=== PATIENT | female | born 1935 | race Caucasian/White ===

== ENCOUNTER 2020-04-09 19:35 | IRF | payer MEDICARE, SELFPAY ==
--- NOTE | 2020-04-09 21:29 | ADMGEN ---
This patient, Lori Rodriguez, was admitted to [facility] Room 222-01 at 1935. Patient/family oriented to hospital policies and general routines including ID bracelet, bed and alarms, visiting hours, pain management, procedures, bathroom and other care routines, personal items, smoking policy, room service/diet, and visiting hours. Valuables list has been completed. Information on how to activate the Rapid Response Team has been discussed. Patient/Family are encouraged to report perceived risks to care and to ask questions if they do not understand what they are told or what they should do.
[2020-04-09] MEDS: ATORVASTATIN 40 MG TABLET PO (21:30)
[2020-04-09 21:42] VITALS: BP 171/89; PULSE 93; RESP 20; TEMP 37.1; O2SAT 94
[2020-04-10 03:33] VITALS: BMI 20.2
[2020-04-10 04:54] VITALS: BP 115/50; PULSE 88; RESP 20; TEMP 37.2; O2SAT 98
[2020-04-10 04:59] LABS: Basophils Percent Auto 0.2 % (0.2-1.2); Eosinophils Percent Auto 0.1 % (0-4.4); Hematocrit 41.7 % (37.0-47.0); Hemoglobin 14.4 g/dL (12.0-15.0); Immature Granulocyte Absolute 0.07 K/mm3 (0.00-0.031); Immature Granulocyte Percent A 0.4 % (0-0.5); Lymphocytes Absolute Auto 1.01 K/mm3 (0.9-3.2); Lymphocytes Percent Auto 6.4 % (18.3-44.2); Mean Corpuscular HGB Conc 34.5 g/dl (32-36); Mean Corpuscular Hemoglobin 29.3 pg (26-34); Mean Corpuscular Volume 84.8 fl (80-100); Mean Platelet Volume 9.2 fl (7.4-10.4); Monocytes Absolute Auto 1.4 K/mm3 (0.1-0.6); Monocytes Percent Auto 8.7 % (2.6-8.5); Neutrophils Absolute Auto 13.3 K/mm3 (1.3-6.7); Neutrophils Percent Auto 84.2 % (45.5-73.1); Platelet Count Result 297 k/mm3 (150-375); Red Blood Count 4.92 M/mm3 (4.2-5.4); Red Cell Distribution Width 13.2 % (11.5-14.5); White Blood Count 15.8 K/mm3 (4.5-10.0)
[2020-04-10 05:14] LABS: Anion Gap 7 mmol/L (8-16); Blood Urea Nitrogen 17 mg/dL (7-17); Calcium 10.3 mg/dL (8.4-10.2); Carbon Dioxide 30 mmol/L (22-30); Chloride 91 mmol/L (98-107); Cholesterol 195 mg/dL (0-200); Estimated CRCL calculation 48 ml/min; Estimated Glomerular Filt Rate > 60; Glucose 119 mg/dL (65-105); HDL Direct 82 mg/dL; Potassium 4.4 mmol/L (3.4-5.0); Sodium 128 mmol/L (137-145); Triglycerides 66 mg/dL (<150)
[2020-04-10 05:24] LABS: LDL Cholesterol Direct 75 mg/dL
[2020-04-10] MEDS: LEVOTHYROXINE SODIUM 50 MCG TABLET PO (06:05)
[2020-04-10] MEDS: CLOPIDOGREL BISULFATE 75 MG TABLET PO (09:36)
[2020-04-10] MEDS: ASPIRIN 81 MG CHEWABLE TABLET PO (09:36)
[2020-04-10] MEDS: lisinopriL 10 MG TABLET PO ×2 (09:36→17:36)
--- NOTE | 2020-04-10 10:33 | PM.IMHP ---
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 The patient was examined by this examiner [id number] at 10:00 a.m. on April 10, 2020 H and P The patient is an 85-year-old woman with a past medical history of hypertension, hyperlipidemia, hypothyroidism, and anxiety who presented to [facility] on April 07, 2020 with left-sided weakness. The patient reported that she woke up around 4:45 a.m. and attempted to get out of the bed however her left arm left leg felt very heavy and she was unable to stand. Her contacted EMS and she was transported to the emergency department. The patient reported that she has had no symptoms prior to going to bed around 10:00 p.m.. She was too late to get TPN treatment for CVA as she was outside the window. Blood pressure in the emergency room was initially 226/110 and after several medications drop to 198/86. Chest x-ray demonstrated minimal bibasilar opacities likely atelectasis atelectasis or scarring. CT of the head revealed an acute to subacute lacunar infarct of the right centrum semi ovale measuring up to 2 centimeter. Carotid Dopplers showed no significant carotid or vertebral artery stenosis Prieb intracranial CTA demonstrated a suspected acute to subacute lacunar infarct of the right centrum semi ovale and no aneurysm or significant focal stenosis or occlusion. MRI of the brain demonstrated a small acute infarction of the left parietal periventricular white matter an acute infarct of the posterior limb of the right internal capsule. Neurology was consulted and she was placed on aspirin atorvastatin Lovenox and Plavix. The patient will continue aspirin and Plavix 75 milligram 90 days followed by monotherapy with either anti-platelet. The systolic blood pressure goal is the near term in the near term is 140/80 and up to 180 a in the acute phase of the stroke systolic. Long-term systolic blood pressure goal is 110 to 130 millimeter of mercury. The patient is awake alert oriented x4 and demonstrates left-sided neglect significant decrease strength endurance almost hemiplegia and impaired balance. The patient is discharged to us on aspirin Plavix and Lovenox will be discontinued she should be on SCDs though The patient has not traveled outside the [place] or had contact with someone who is ill that has traveled outside the [place] in the past 21 days. The patient has not traveled to an area of the [place] that is experiencing no transmission of the Coronavirus and has not had close personal contact with anyone that has. The patient does not have a fever. The patient is not experiencing lower respiratory illness symptoms. Therapy was initiated the acute care facility and the patient was transferred to us from [facility] on April 09, 2020. The patient has had no major surgery in the last 100 days. The patient has had falls in the past year. The patient has had no falls with injury in the past year. Past medical history, cataracts, hard of hearing, macular degeneration, shingles, hypertension, hyperlipidemia, pneumonia, bronchitis, GERD, UTI, anxiety Past surgical history, tonsillectomy bilateral cataract removal, D and C. Family history first-degree relatives have heart disease and hypertension. Social history, the patient lives with her in a 1 story home with and steps to enter and walked out placement. She was previously completely independent with no device. She completed all of the cooking and cleaning and garden or other grandson completed the art work. She has 3 children that live locally. Prior level for or function was completely independent in all spheres of t
[2020-04-10 14:00] VITALS: BP 111/53; PULSE 82; RESP 16; TEMP 36.7; O2SAT 95
[2020-04-10 14:18] VITALS: BMI 20.2
--- NOTE | 2020-04-10 14:44 | PCNSR ---
On 04/10/20, the student, Luz Chen, provided care and completed [facility] documentation on this patient. I have reviewed the student's documentation and agree with the findings.
--- NOTE | 2020-04-10 16:27 | RPD ---
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 Comorbidities include KALISPEL, macular degeneration, HTN, HLD, GERD, UTI, anxiety, hypertensive urgency, hypothyroidism, left-sided weakness, nausea, hyponatremia, and hypercalcemia. The complexity of the patient's medical management, nursing, and therapy needs require an inpatient rehab hospital stay with a physician-led interdisciplinary team approach. The patient?s needs will be best met in an intensive program vs. at a lower level of care. The patient requires physician services for neurology services, medical oversight, and coordination of care. Emotional needs will be monitored as depression is a common sequelae of stroke. The patient requires nursing services for frequent neuro checks, anticoagulation therapy, medication management and education, pressure relief and skin care management, monitoring of labs, bowel and bladder training, diabetes management and education, IV administration, and fall/safety precautions. Deficits include:ADLs, Balance, Endurance, Family Training/Education, Mobility, Pain Management, ROM, Safety, Strength, and Transfers. Head Pastry Chef/Case Management for: Discharge Planning and Patient/Family Counseling Physical Therapy: 5 days per week for 60 minutes. Treatments may include: Therapeutic Exercise, Gait Training, Neuromuscular Re-education, Transfer Training, Community Reintegration, Bed Mobility, Patient/Family Education, Wheelchair Mobility Group Therapy/Concurrent Therapy Rationales: -Improve attention span during functional activities in a distracted environment. -Enhance problem solving and/or adequate judgment skills during functional activities in a distracted environment. -Promote increased safety awareness in a distracted environment to reduce fall risk with functional tasks, transfers, and ambulation to allow a more safe, self-sufficient return to the home environment. -Improve dynamic balance skills to promote safety and independence with functional activities in a distracted environment for maximum gain. Occupational Therapy: 5 days per week for 60 minutes. Treatments may include: Therapeutic Exercise, Therapeutic Activity, Cognitive Training, Self-Care Transfer Training, Community Reintegration, Home Management, Patient/Family Education, Wheelchair Mobility Training, Energy Conservation Training Group Therapy/Concurrent Therapy Rationales: -Allow therapist to observe and teach generalization and carry-over of skills learned in individual therapy. -Enhance problem solving and sequencing skills during therapeutic activities in a distracted environment. -Promote increased safety awareness in a realistic setting to reduce fall risk with functional tasks due to visual and verbal distractions. -Increase functional level with ADLs, ADL transfers and use of adaptive equipment through therapeutic activities with others while promoting safety to allow a more safe, self-sufficient return home. Speech Therapy: 5 days per week for 60 minutes. Treatments may include: Dysphasia Therapy, Speech/Language/Communication Therapy, Cognitive Training, Patient/Family Education Group Therapy/Concurrent Therapy - Rationale: -Allow therapist to observe and teach generalization and carry-over of skills learned in individual therapy. -Improve comprehension skills with complex or abstract ideas through discussion in a realistic setting. -Enhance problem solving skills with complex issues during activities in a distracted environment. -Promote increased memory skills and concentration in a distracted environment for a safe transition home. -Improve attention and focus with language/communication skills in a realistic and supportive ther
[2020-04-10 20:15] VITALS: BP 138/64; PULSE 76; RESP 18; TEMP 36.9; O2SAT 95
[2020-04-10] MEDS: ATORVASTATIN 40 MG TABLET PO (20:49)
[2020-04-11 05:31] VITALS: BP 134/60; PULSE 79; RESP 18; TEMP 36.6; O2SAT 97
[2020-04-11] MEDS: LEVOTHYROXINE SODIUM 50 MCG TABLET PO (06:26)
[2020-04-11] MEDS: CLOPIDOGREL BISULFATE 75 MG TABLET PO (09:59)
[2020-04-11] MEDS: lisinopriL 10 MG TABLET PO ×2 (09:59→17:21)
[2020-04-11] MEDS: ASPIRIN 81 MG CHEWABLE TABLET PO (09:59)
[2020-04-11 10:00] VITALS: PULSE 78; RESP 18; O2SAT 97
--- NOTE | 2020-04-11 13:47 | WPDNEURORHBP ---
Subjective Date/time seen: 04/11/20 13:47 Interval history: this 85-year-old woman is here because of significant stroke and the significant left-sided hemiparesis which she is unable to ambulate at home and she will need DVT prophylaxis along with the entity the platelet therapy at this time She denies any headache nausea vomiting chest pain shortness of breath fever chills sore throat Review of Systems Review of Systems: All systems reviewed & are unremarkable except as noted in HPI and below Exam Narrative: Exam Narrative: patient is awake alert not any distress has significant left-sided weakness otherwise the general examination reveals normal eyes ears nose and throat normal eye examination chest is clear cardiovascular examination stable abdomen is soft not tender extremities reveal no deformities She is needing assistance is all the activities of daily living Objective Data Vital Signs Vital Signs: Vital Signs - 24 hr 04/10/20 14:00 04/10/20 20:15 04/11/20 05:31 Temperature 36.7 C 36.9 C 36.6 C Pulse Rate 82 76 79 Respiratory Rate 16 18 18 Blood Pressure 111/53 L 138/64 134/60 Pulse Oximetry 95 95 97 04/11/20 10:00 Temperature Pulse Rate 78 Respiratory Rate 18 Blood Pressure Pulse Oximetry 97 Intake/Output Intake/Output: Intake & Output 04/08/20 04/09/20 04/10/20 04/11/20 23:59 23:59 23:59 23:59 Intake Total 600 240 Balance 600 240 Meds/Results Medications: Active Medications Generic Name Dose Route Start Last Admin Trade Name Freq PRN Reason Stop Dose Admin Acetaminophen 650 mg 04/09/20 21:24 Acetaminophen 325 Mg Tablet PO Q4H PRN Fever Aspirin 81 mg 04/10/20 08:00 04/11/20 09:59 Aspirin 81 Mg Chewable Tablet PO 81 mg DAILY@0800 PHAN Administration Atorvastatin Calcium 40 mg 04/09/20 21:30 04/10/20 20:49 Atorvastatin 40 Mg Tablet PO 40 mg HS PHAN Administration Clopidogrel Bisulfate 75 mg 04/10/20 09:00 04/11/20 09:59 Clopidogrel Bisulfate 75 Mg Tablet PO 75 mg DAILY PHAN Administration Levothyroxine Sodium 50 mcg 04/10/20 06:30 04/11/20 06:26 Levothyroxine Sodium 50 Mcg Tablet PO 50 mcg DAILY@0630 PHAN Administration Lisinopril 10 mg 04/10/20 09:00 04/11/20 09:59 Lisinopril 10 Mg Tablet PO 10 mg BID PHAN Administration Melatonin 5 mg 04/09/20 21:24 Melatonin 5 Mg Tablet PO HS PRN Sleep Ondansetron HCl 4 mg 04/10/20 11:34 Ondansetron Hcl Odt 4 Mg Tablet PO Q6H PRN Nausea And Vomiting Polyethylene Glycol 17 gm 04/12/20 09:00 Polyethylene Glycol 3350 17 Gm Powd.Pack PO QAM [facility] Progress Note: A&P Assessment and Plan (1) Anxiety: Code(s): F41.9 - Anxiety disorder, unspecified Status: Acute (2) Hyperlipidemia: Code(s): E78.5 - Hyperlipidemia, unspecified Status: Acute (3) GERD (gastroesophageal reflux disease): Code(s): K21.9 - Gastro-esophageal reflux disease without esophagitis Status: Acute (4) Hypertension: Code(s): I10 - Essential (primary) hypertension Status: Acute (5) Left hemiplegia: Code(s): G81.94 - Hemiplegia, unspecified affecting left nondominant side Status: Acute (6) Stroke: Code(s): I63.9 - Cerebral infarction, unspecified Status: Acute Additional Plan will start her on Lovenox till she starts ambulating rest of the medical management along with PT OT and speech as before
[2020-04-11 14:00] VITALS: BP 138/53; PULSE 76; RESP 16; TEMP 37.4; O2SAT 96
[2020-04-11] MEDS: ENOXAPARIN 40 MG/0.4 ML SYRINGE SUB-Q (17:16)
[2020-04-11 20:00] VITALS: PULSE 80; RESP 18; O2SAT 94
[2020-04-11] MEDS: ATORVASTATIN 40 MG TABLET PO (20:10)
[2020-04-11 22:00] VITALS: BP 174/76; PULSE 80; RESP 18; TEMP 36.2; O2SAT 94
[2020-04-11] MEDS: ACETAMINOPHEN 325 MG TABLET 650 MG PO (23:14)
[2020-04-12 06:00] VITALS: BP 149/68; PULSE 68; RESP 19; TEMP 36.1; O2SAT 95
[2020-04-12] MEDS: LEVOTHYROXINE SODIUM 50 MCG TABLET PO (06:36)
[2020-04-12] MEDS: polyethylene glycoL 3350 17 GM POWD.PACK PO (09:59)
[2020-04-12] MEDS: ENOXAPARIN 40 MG/0.4 ML SYRINGE SUB-Q (09:59)
[2020-04-12] MEDS: CLOPIDOGREL BISULFATE 75 MG TABLET PO (09:59)
[2020-04-12] MEDS: lisinopriL 10 MG TABLET PO ×2 (09:59→16:55)
[2020-04-12] MEDS: ASPIRIN 81 MG CHEWABLE TABLET PO (09:59)
[2020-04-12 14:00] VITALS: BP 154/69; PULSE 69; RESP 18; TEMP 36.8; O2SAT 96
--- NOTE | 2020-04-12 16:29 | WPDNEURORHBP ---
Subjective Date/time seen: 04/12/20 16:29 Interval history: this 85-year-old pretty pleasant woman is here with significant left-sided hemiplegia she has leukocytosis and hyponatremia so I need to check the CBC and BMP tomorrow otherwise she denies any headache nausea vomiting chest pain shortness of breath fever chills sore throat and vital signs are stable Review of Systems Review of Systems: All systems reviewed & are unremarkable except as noted in HPI and below Exam Narrative: Exam Narrative: patient is awake alert following commands with significant left-sided hemiplegia and left-sided neglect otherwise head is normocephalic neck is supple lungs are clear cardiovascular examination is negative abdomen is soft not tender extremities reveal no deformities Objective Data Vital Signs Vital Signs: Vital Signs - 24 hr 04/11/20 20:00 04/11/20 22:00 04/12/20 06:00 Temperature 36.2 C L 36.1 C L Pulse Rate 80 80 68 Respiratory Rate 18 18 19 Blood Pressure 174/76 H 149/68 H Pulse Oximetry 94 94 95 04/12/20 14:00 Temperature 36.8 C Pulse Rate 69 Respiratory Rate 18 Blood Pressure 154/69 H Pulse Oximetry 96 Intake/Output Intake/Output: Intake & Output 04/09/20 04/10/20 04/11/20 04/12/20 23:59 23:59 23:59 23:59 Intake Total 600 600 920 Balance 600 600 920 Meds/Results Medications: Active Medications Generic Name Dose Route Start Last Admin Trade Name Freq PRN Reason Stop Dose Admin Acetaminophen 650 mg 04/09/20 21:24 04/11/20 23:14 Acetaminophen 325 Mg Tablet PO 650 mg Q4H PRN Administration Mild Pain (1-3) or Fever Aspirin 81 mg 04/10/20 08:00 04/12/20 09:59 Aspirin 81 Mg Chewable Tablet PO 81 mg DAILY@0800 PHAN Administration Atorvastatin Calcium 40 mg 04/09/20 21:30 04/11/20 20:10 Atorvastatin 40 Mg Tablet PO 40 mg HS PHAN Administration Clopidogrel Bisulfate 75 mg 04/10/20 09:00 04/12/20 09:59 Clopidogrel Bisulfate 75 Mg Tablet PO 75 mg DAILY PHAN Administration Enoxaparin Sodium 40 mg 04/12/20 09:00 04/12/20 09:59 Enoxaparin 40 Mg/0.4 Ml Syringe SUB-Q 40 mg DAILY PHAN Administration Levothyroxine Sodium 50 mcg 04/10/20 06:30 04/12/20 06:36 Levothyroxine Sodium 50 Mcg Tablet PO 50 mcg DAILY@0630 PHAN Administration Lisinopril 10 mg 04/10/20 09:00 04/12/20 09:59 Lisinopril 10 Mg Tablet PO 10 mg BID PHAN Administration Melatonin 5 mg 04/09/20 21:24 Melatonin 5 Mg Tablet PO HS PRN Sleep Ondansetron HCl 4 mg 04/10/20 11:34 Ondansetron Hcl Odt 4 Mg Tablet PO Q6H PRN Nausea And Vomiting Polyethylene Glycol 17 gm 04/12/20 09:00 04/12/20 09:59 Polyethylene Glycol 3350 17 Gm Powd.Pack PO 17 gm QAM PHAN Administration Progress Note: A&P Assessment and Plan (1) Leukocytosis: Code(s): D72.829 - Elevated white blood cell count, unspecified Status: Acute (2) Hyponatremia: Code(s): E87.1 - Hypo-osmolality and hyponatremia Status: Acute (3) Anxiety: Code(s): F41.9 - Anxiety disorder, unspecified Status: Acute (4) Hyperlipidemia: Code(s): E78.5 - Hyperlipidemia, unspecified Status: Acute (5) Hypertension: Code(s): I10 - Essential (primary) hypertension Status: Acute (6) Stroke: Code(s): I63.9 - Cerebral infarction, unspecified Status: Acute (7) Left hemiplegia: Code(s): G81.94 - Hemiplegia, unspecified affecting left nondominant side Status: Acute Additional Plan check the CBC with diff and BMP tomorrow rest of the medical management PT OT and gait training as before
[2020-04-12 20:00] VITALS: PULSE 69; RESP 18; O2SAT 96
[2020-04-12] MEDS: ATORVASTATIN 40 MG TABLET PO (20:19)
[2020-04-12 22:00] VITALS: BP 157/74; PULSE 75; RESP 18; TEMP 36.9; O2SAT 93
[2020-04-12] MEDS: MELATONIN 5 MG TABLET PO (23:29)
[2020-04-13] MEDS: LEVOTHYROXINE SODIUM 50 MCG TABLET PO (05:30)
[2020-04-13 05:37] LABS: Basophils Absolute Auto 0.1 K/mm3 (0.0-0.1); Basophils Percent Auto 0.5 % (0.2-1.2); Eosinophils Absolute Auto 0.2 K/mm3 (0-0.3); Eosinophils Percent Auto 1.5 % (0-4.4); Hematocrit 37.9 % (37.0-47.0); Hemoglobin 13.1 g/dL (12.0-15.0); Immature Granulocyte Absolute 0.04 K/mm3 (0.00-0.031); Immature Granulocyte Percent A 0.4 % (0-0.5); Lymphocytes Absolute Auto 1.23 K/mm3 (0.9-3.2); Lymphocytes Percent Auto 12.5 % (18.3-44.2); Mean Corpuscular HGB Conc 34.6 g/dl (32-36); Mean Corpuscular Hemoglobin 28.5 pg (26-34); Mean Corpuscular Volume 82.4 fl (80-100); Monocytes Percent Auto 10.3 % (2.6-8.5); Neutrophils Absolute Auto 7.4 K/mm3 (1.3-6.7); Neutrophils Percent Auto 74.8 % (45.5-73.1); Platelet Count Result 329 k/mm3 (150-375); Red Cell Distribution Width 12.9 % (11.5-14.5); White Blood Count 9.8 K/mm3 (4.5-10.0)
[2020-04-13 06:00] VITALS: BP 154/93; PULSE 66; RESP 18; TEMP 36.6; O2SAT 94
[2020-04-13 06:33] LABS: Anion Gap 3 mmol/L (8-16); Blood Urea Nitrogen 10 mg/dL (7-17); Carbon Dioxide 31 mmol/L (22-30); Chloride 93 mmol/L (98-107); Estimated CRCL calculation 65 ml/min; Estimated Glomerular Filt Rate > 60; Glucose 110 mg/dL (65-105); Potassium 4.5 mmol/L (3.4-5.0); Sodium 127 mmol/L (137-145)
[2020-04-13] MEDS: CLOPIDOGREL BISULFATE 75 MG TABLET PO (09:29)
[2020-04-13] MEDS: ENOXAPARIN 40 MG/0.4 ML SYRINGE SUB-Q (09:29)
[2020-04-13] MEDS: lisinopriL 10 MG TABLET PO ×2 (09:29→17:13)
[2020-04-13] MEDS: ASPIRIN 81 MG CHEWABLE TABLET PO (09:30)
[2020-04-13] MEDS: polyethylene glycoL 3350 17 GM POWD.PACK PO (09:31)
[2020-04-13 09:35] VITALS: PULSE 68; RESP 18; O2SAT 94
[2020-04-13 14:00] VITALS: BP 153/65; PULSE 65; RESP 20; TEMP 36.8; O2SAT 98
--- NOTE | 2020-04-13 15:31 | WPDNEURORHBP ---
Subjective Date/time seen: 04/13/20 15:31 Interval history: this pleasant 85-year-old woman is here after having had stroke with left-sided hemiplegia she is cheerful smiling and seems like has neglect to the left side but is plegic she is running a low sodium around 127 and 128 I will replace with sodium chloride tablets at this time vital signs are stable she denies any headache nausea vomiting chest pain shortness of breath fever chills sore throat The leukocytosis has improved and it comes within normal range Review of Systems Review of Systems: All systems reviewed & are unremarkable except as noted in HPI and below Exam Narrative: Exam Narrative: patient is awake alert will oriented has left-sided hemiplegia left-sided neglect and needing assistance all the activities of daily living I examination is normal ear nose throat is normal neck is supple lungs are clear cardiovascular examination is stable abdomen soft not tender extremities reveal no deformity Objective Data Vital Signs Vital Signs: Vital Signs - 24 hr 04/12/20 20:00 04/12/20 22:00 04/13/20 06:00 Temperature 36.9 C 36.6 C Pulse Rate 69 75 66 Respiratory Rate 18 18 18 Blood Pressure 157/74 H 154/93 H Pulse Oximetry 96 93 94 04/13/20 09:35 04/13/20 14:00 Temperature 36.8 C Pulse Rate 68 65 Respiratory Rate 18 20 Blood Pressure 153/65 H Pulse Oximetry 94 98 Intake/Output Intake/Output: Intake & Output 04/10/20 04/11/20 04/12/20 04/13/20 23:59 23:59 23:59 23:59 Intake Total 037 348 8972 480 Balance 385 700 2963 480 Meds/Results Medications: Active Medications Generic Name Dose Route Start Last Admin Trade Name Freq PRN Reason Stop Dose Admin Acetaminophen 650 mg 04/09/20 21:24 04/11/20 23:14 Acetaminophen 325 Mg Tablet PO 650 mg Q4H PRN Administration Mild Pain (1-3) or Fever Aspirin 81 mg 04/10/20 08:00 04/13/20 09:30 Aspirin 81 Mg Chewable Tablet PO 81 mg DAILY@0800 PHAN Administration Atorvastatin Calcium 40 mg 04/09/20 21:30 04/12/20 20:19 Atorvastatin 40 Mg Tablet PO 40 mg HS PHAN Administration Clopidogrel Bisulfate 75 mg 04/10/20 09:00 04/13/20 09:29 Clopidogrel Bisulfate 75 Mg Tablet PO 75 mg DAILY PHAN Administration Enoxaparin Sodium 40 mg 04/12/20 09:00 04/13/20 09:29 Enoxaparin 40 Mg/0.4 Ml Syringe SUB-Q 40 mg DAILY PHAN Administration Levothyroxine Sodium 50 mcg 04/10/20 06:30 04/13/20 05:30 Levothyroxine Sodium 50 Mcg Tablet PO 50 mcg DAILY@0630 PHAN Administration Lisinopril 10 mg 04/10/20 09:00 04/13/20 09:29 Lisinopril 10 Mg Tablet PO 10 mg BID PHAN Administration Melatonin 5 mg 04/09/20 21:24 04/12/20 23:29 Melatonin 5 Mg Tablet PO 5 mg HS PRN Administration Sleep Ondansetron HCl 4 mg 04/10/20 11:34 Ondansetron Hcl Odt 4 Mg Tablet PO Q6H PRN Nausea And Vomiting Polyethylene Glycol 17 gm 04/12/20 09:00 04/13/20 09:31 Polyethylene Glycol 3350 17 Gm Powd.Pack PO 17 gm QAM PHAN Administration Labs Labs: Laboratory Results - last 24 hr 04/13/20 04/13/20 04:48 04:48 WBC 9.8 RBC 4.60 Hgb 13.1 Hct 37.9 MCV 82.4 MCH 28.5 MCHC 34.6 RDW 12.9 Plt Count 329 MPV 9.0 Immature Gran % (Auto) 0.4 Neut % (Auto) 74.8 H Lymph % (Auto) 12.5 L [place] % (Auto) 10.3 H Eos % (Auto) 1.5 Baso % (Auto) 0.5 Lymph # (Auto) 1.23 [place] # (Auto) 1.0 H Eos # (Auto) 0.2 Baso # (Auto) 0.1 Abs Immat Gran (auto) 0.04 H Absolute Neuts (auto) 7.4 H Absolute Nucleated RBC 0.0 Nucleated RBC % 0.0 Sodium 127 L Potassium 4.5 Chloride 93 L Carbon Dioxide 31 H Anion Gap 3 L BUN 10 D Creatinine 0.50 L Estim Creat Clear Calc 65 Estimated GFR > 60 Glucose 110 H Calcium 10.0 Progress Note: A&P Assessment and Plan (1) Hyponatremia: Code(s): E87.1 - Hypo-osmolality and hyponatremia Status: Acute (2) Leukocytosis:
[2020-04-13] MEDS: SODIUM CHLORIDE 1 GM TABLET PO (17:13)
[2020-04-13] MEDS: ATORVASTATIN 40 MG TABLET PO (19:44)
[2020-04-13 22:00] VITALS: BP 152/87; PULSE 74; RESP 18; TEMP 36; O2SAT 96
[2020-04-13] MEDS: MELATONIN 5 MG TABLET PO (23:28)
[2020-04-14 06:00] VITALS: BP 162/71; PULSE 74; RESP 17; TEMP 36.1; O2SAT 95
[2020-04-14] MEDS: LEVOTHYROXINE SODIUM 50 MCG TABLET PO (06:12)
[2020-04-14] MEDS: CLOPIDOGREL BISULFATE 75 MG TABLET PO (08:25)
[2020-04-14] MEDS: ASPIRIN 81 MG CHEWABLE TABLET PO (08:25)
[2020-04-14] MEDS: polyethylene glycoL 3350 17 GM POWD.PACK PO (08:25)
[2020-04-14] MEDS: SODIUM CHLORIDE 1 GM TABLET PO ×2 (08:25→20:29)
[2020-04-14] MEDS: ENOXAPARIN 40 MG/0.4 ML SYRINGE SUB-Q (08:25)
[2020-04-14] MEDS: lisinopriL 10 MG TABLET PO ×2 (08:25→17:03)
--- NOTE | 2020-04-14 09:29 | PCPTNOTE ---
Lori Rodriguez was evaluated for a slide board on 04/14/2020 by this physical therapist. The slide board will resolve patient's mobility limitations and will be used for ADL's within the home. The patient can safely use the slide board. ?The slide board will resolve the patient?s mobility deficits, including L LE flaccidity, decreased standing balance, and incoordination.
[2020-04-14 14:00] VITALS: BP 157/76; PULSE 84; RESP 18; TEMP 36.2; O2SAT 97
--- NOTE | 2020-04-14 16:29 | PCPTNOTE ---
Jennifer Harp, ESPINOZA completed an inpatient rehab wheelchair evaluation on Lori Rodriguez on 04/14/2020. The patient is unable to safely and independently ambulate household distances due to their current impairments. Their diagnosis is CVA and their impairments include decreased strength, decreased endurance, decreased range of motion, decreased balance, lower extremity weakness, and ataxia. Lori Neal's weight bearing status is weight-bearing as tolerated on the bilateral lower legs. The patient demonstrates significant functional mobility limitations that impair their ability to participate in mobility-related activities of daily living (MRADLs), including toileting, feeding, dressing, grooming, and bathing in the customary locations in the home. These limitations cannot be sufficiently resolved by the use of an appropriately fitted cane or walker. It is recommended that the patient utilize a wheelchair for functional mobility within the home in order to facilitate optimal safety, independence and participation in all MRADL's and adequately access their home environment on a regular basis. The patient's home provides adequate access between rooms, maneuvering space, and surfaces to accommodate the recommended wheelchair. The use of a wheelchair for functional mobility is strongly recommended and the patient is receptive to using the wheelchair. The use of this wheelchair will significantly improve the patient's ability to participate in MRADLS and the patient will use it on a regular basis in the home. This will facilitate optimal safety, independence, and participation. The patient has demonstrated sufficient physical and mental capabilities needed to safely propel a manual wheelchair that is provided in the home during a typical day. Recommended Wheelchair Frame: standard Recommended Wheelchair Size: 18x18 Recommended Wheelchair Cushion:standard Wheelchair Leg Recommendations: swing away - Anti-tippers are recommended due to patient demonstrating increased risk for falls. They would benefit from anti-tippers with added safety and stabilization. Jennifer Katiuska EXERCISE SCIENTIST 04-14-2020 Evaluating Therapist Date I agree with and certify that the above recommendation is medically necessary. Referring Physician Date I agree with and certify that the above recommendation is medically necessary. Referring Physician Date
[2020-04-14 20:00] VITALS: O2SAT 96
[2020-04-14] MEDS: ATORVASTATIN 40 MG TABLET PO (20:29)
[2020-04-14 20:44] VITALS: BP 152/72; PULSE 72; RESP 14; TEMP 36.7; O2SAT 96
[2020-04-14] MEDS: ACETAMINOPHEN 325 MG TABLET 650 MG PO (21:47)
[2020-04-15 05:36] VITALS: BP 142/75; PULSE 75; RESP 12; TEMP 36.8; O2SAT 97
[2020-04-15] MEDS: LEVOTHYROXINE SODIUM 50 MCG TABLET PO (06:58)
[2020-04-15] MEDS: ENOXAPARIN 40 MG/0.4 ML SYRINGE SUB-Q (09:51)
[2020-04-15] MEDS: ASPIRIN 81 MG CHEWABLE TABLET PO (09:51)
[2020-04-15] MEDS: polyethylene glycoL 3350 17 GM POWD.PACK PO (09:51)
[2020-04-15] MEDS: CLOPIDOGREL BISULFATE 75 MG TABLET PO (09:51)
[2020-04-15] MEDS: SODIUM CHLORIDE 1 GM TABLET PO ×2 (09:51→20:52)
[2020-04-15] MEDS: lisinopriL 10 MG TABLET PO ×2 (09:51→17:15)
--- NOTE | 2020-04-15 12:16 | WPDNEURORHBP ---
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 She denies any headache nausea vomiting chest pain shortness of breath she is working with the occupational therapy and the physical therapy team and in fact she walk 20 feet with handrails which is significant improvement from the point she was totally completely plegic Review of Systems Review of Systems: All systems reviewed & are unremarkable except as noted in HPI and below Functional Status Ambulation Ability Ability to Ambulate 10 Feet: Moderate Assistance X 1 Ambulation Assistive Devices: Cane, Clark Exam Narrative: Exam Narrative: patient is awake and alert well oriented follows all commands improving left-sided hemiplegia eyes ear nose throat normal neck is supple lungs are clear cardiovascular examination is stable/ negative abdomen soft nontender extremities reveal no deformities She still needing significant assistance in the all the activities of daily living Objective Data Vital Signs Vital Signs: Vital Signs - 24 hr 04/14/20 14:00 04/14/20 20:00 04/14/20 20:44 Temperature 36.2 C L 36.7 C Pulse Rate 84 72 Respiratory Rate 18 14 Blood Pressure 157/76 H 152/72 H Pulse Oximetry 97 96 96 04/15/20 05:36 Temperature 36.8 C Pulse Rate 75 Respiratory Rate 12 Blood Pressure 142/75 H Pulse Oximetry 97 Intake/Output Intake/Output: Intake & Output 04/12/20 04/13/20 04/14/20 04/15/20 23:59 23:59 23:59 23:59 Intake Total 1160 720 720 240 Balance 1160 720 720 240 Meds/Results Medications: Active Medications Generic Name Dose Route Start Last Admin Trade Name Freq PRN Reason Stop Dose Admin Acetaminophen 650 mg 04/09/20 21:24 04/14/20 21:47 Acetaminophen 325 Mg Tablet PO 650 mg Q4H PRN Administration Mild Pain (1-3) or Fever Aspirin 81 mg 04/10/20 08:00 04/15/20 09:51 Aspirin 81 Mg Chewable Tablet PO 81 mg DAILY@0800 PHAN Administration Atorvastatin Calcium 40 mg 04/09/20 21:30 04/14/20 20:29 Atorvastatin 40 Mg Tablet PO 40 mg HS PHAN Administration Clopidogrel Bisulfate 75 mg 04/10/20 09:00 04/15/20 09:51 Clopidogrel Bisulfate 75 Mg Tablet PO 75 mg DAILY PHAN Administration Enoxaparin Sodium 40 mg 04/12/20 09:00 04/15/20 09:51 Enoxaparin 40 Mg/0.4 Ml Syringe SUB-Q 40 mg DAILY PHAN Administration Levothyroxine Sodium 50 mcg 04/10/20 06:30 04/15/20 06:58 Levothyroxine Sodium 50 Mcg Tablet PO 50 mcg DAILY@0630 PHAN Administration Lisinopril 10 mg 04/10/20 09:00 04/15/20 09:51 Lisinopril 10 Mg Tablet PO 10 mg BID PHAN Administration Melatonin 5 mg 04/09/20 21:24 04/13/20 23:28 Melatonin 5 Mg Tablet PO 5 mg HS PRN Administration Sleep Ondansetron HCl 4 mg 04/10/20 11:34 Ondansetron Hcl Odt 4 Mg Tablet PO Q6H PRN Nausea And Vomiting Polyethylene Glycol 17 gm 04/12/20 09:00 04/15/20 09:51 Polyethylene Glycol 3350 17 Gm Powd.Pack PO 17 gm QAM PHAN Administration Sodium Chloride 1 gm 04/13/20 16:00 04/15/20 09:51 Sodium Chloride 1 Gm Tablet PO 1 gm Q12HR PHAN Administration Progress Note: A&P Assessment and Plan (1) Hyponatremia: Code(s): E87.1 - Hypo-osmolality and hyponatremia Status: Acute (2) Leukocytosis: Code(s): D72.829 - Elevated white blood cell count, unspecified Status: Resolved (3) Anxiety: Code(s): F41.9 - Anxiety disorder, unspecified Status: Acute (4) Hyperlipidemia: Code(s): E78.5 - Hyperlipidemia, unspecified Status: Acute (5) GERD (gastroesophageal reflux disease): Code(s): K21.9 - Gastro-esophageal reflux disease without esophagitis Status: Acute (6) Hypertension: Code(s): I10 - Essential (primary) hypertension Status
[2020-04-15 14:00] VITALS: BP 156/73; PULSE 78; RESP 18; TEMP 35.9; O2SAT 97
--- NOTE | 2020-04-15 14:21 | PCNFU ---
Nutrition Follow-Up Complete: Predicted inadequate energy intake related to recovery from stroke, as evidenced by inconsistent appetite and intake record. Pt. will regain consistent appetite and consume at least 90% of caloric needs to promote recovery. Goal: in progress Pt current nutrition is appropriate, which is heart healthy diet. Nutrition recommendation: pt continue to follow Heart Healthy guidelines after discharge to help prevent incident of another stroke. Last recorded weight is 58.6 kg on 04/10, recommend new recording every week. Bowel Motility: last recorded BM from nurse spreadsheet on 04/12 Labs Reviewed: Hgb (13.1), Hct (37.9), Na (127), BUN (10), Glu (110) Meds Noted: Miralax, Prinivil, Lovenox, Plavix, Synthroid, Lipitor Additional Notes: integumentary integrity WNL Monitor pt intake and output records; follow up in 7 days.
--- NOTE | 2020-04-15 14:34 | PCNSR ---
On 04/15/20, the student, Luz Chen, provided care and completed [facility] documentation on this patient. I have reviewed the student's documentation and agree with the findings.
[2020-04-15 20:00] VITALS: O2SAT 96
[2020-04-15] MEDS: MELATONIN 5 MG TABLET PO (20:52)
[2020-04-15] MEDS: ACETAMINOPHEN 325 MG TABLET 650 MG PO (20:52)
[2020-04-15] MEDS: ATORVASTATIN 40 MG TABLET PO (20:52)
[2020-04-15 22:00] VITALS: BP 178/85; PULSE 69; RESP 18; TEMP 36.6; O2SAT 96
[2020-04-15] MEDS: amLODIPine BESYLATE 5 MG TABLET PO (22:43)
[2020-04-16 06:00] VITALS: BP 143/64; PULSE 65; RESP 18; TEMP 36.8; O2SAT 95
[2020-04-16] MEDS: LEVOTHYROXINE SODIUM 50 MCG TABLET PO (06:25)
[2020-04-16] MEDS: lisinopriL 10 MG TABLET PO ×2 (09:21→16:51)
[2020-04-16] MEDS: CLOPIDOGREL BISULFATE 75 MG TABLET PO (09:22)
[2020-04-16] MEDS: ASPIRIN 81 MG CHEWABLE TABLET PO (09:22)
[2020-04-16] MEDS: amLODIPine BESYLATE 5 MG TABLET PO (09:22)
[2020-04-16] MEDS: SODIUM CHLORIDE 1 GM TABLET PO ×2 (09:22→20:42)
[2020-04-16] MEDS: ENOXAPARIN 40 MG/0.4 ML SYRINGE SUB-Q (09:22)
[2020-04-16] MEDS: polyethylene glycoL 3350 17 GM POWD.PACK PO (09:22)
--- NOTE | 2020-04-16 11:58 | WPDNEURORHBP ---
Subjective Date/time seen: 04/16/20 11:58 Interval history: this very pleasant 85-year-old woman is here after having had a stroke with essentially left hemiplegia however this is improving and she was able to walk several feet denies any headache nausea vomiting chest pain shortness of breath fever chills sore throat blood pressure was relatively elevated last night and I have introduced amlodipine 5 milligram daily along with the lisinopril she is on overall the patient is improving and making progress Review of Systems Review of Systems: All systems reviewed & are unremarkable except as noted in HPI and below Functional Status Ambulation Ability Ability to Ambulate 10 Feet: Moderate Assistance X 1 Ambulation Assistive Devices: Cane, Clark Exam Narrative: Exam Narrative: the patient is awake alert well oriented has improving left-sided hemiparesis the lungs are clear abdomen soft not tender cardiovascular examination is stable abdomen is soft not tender extremities reveal no deformities head neck region is decent and unremarkable Objective Data Vital Signs Vital Signs: Vital Signs - 24 hr 04/15/20 14:00 04/15/20 20:00 04/15/20 22:00 Temperature 35.9 C L 36.6 C Pulse Rate 78 69 Respiratory Rate 18 18 Blood Pressure 156/73 H 178/85 H Pulse Oximetry 97 96 96 04/16/20 06:00 Temperature 36.8 C Pulse Rate 65 Respiratory Rate 18 Blood Pressure 143/64 H Pulse Oximetry 95 Intake/Output Intake/Output: Intake & Output 04/13/20 04/14/20 04/15/20 04/16/20 23:59 23:59 23:59 23:59 Intake Total 720 720 720 240 Balance 720 720 720 240 Meds/Results Medications: Active Medications Generic Name Dose Route Start Last Admin Trade Name Freq PRN Reason Stop Dose Admin Acetaminophen 650 mg 04/09/20 21:24 04/15/20 20:52 Acetaminophen 325 Mg Tablet PO 650 mg Q4H PRN Administration Mild Pain (1-3) or Fever Amlodipine Besylate 5 mg 04/15/20 22:40 04/16/20 09:22 Amlodipine Besylate 5 Mg Tablet PO 5 mg QAM PHAN Administration Aspirin 81 mg 04/10/20 08:00 04/16/20 09:22 Aspirin 81 Mg Chewable Tablet PO 81 mg DAILY@0800 [facility] Administration Atorvastatin Calcium 40 mg 04/09/20 21:30 04/15/20 20:52 Atorvastatin 40 Mg Tablet PO 40 mg HS PHAN Administration Clopidogrel Bisulfate 75 mg 04/10/20 09:00 04/16/20 09:22 Clopidogrel Bisulfate 75 Mg Tablet PO 75 mg DAILY PHAN Administration Enoxaparin Sodium 40 mg 04/12/20 09:00 04/16/20 09:22 Enoxaparin 40 Mg/0.4 Ml Syringe SUB-Q 40 mg DAILY PHAN Administration Levothyroxine Sodium 50 mcg 04/10/20 06:30 04/16/20 06:25 Levothyroxine Sodium 50 Mcg Tablet PO 50 mcg DAILY@0630 PHAN Administration Lisinopril 10 mg 04/10/20 09:00 04/16/20 09:21 Lisinopril 10 Mg Tablet PO 10 mg BID PHAN Administration Melatonin 5 mg 04/09/20 21:24 04/15/20 20:52 Melatonin 5 Mg Tablet PO 5 mg HS PRN Administration Sleep Ondansetron HCl 4 mg 04/10/20 11:34 Ondansetron Hcl Odt 4 Mg Tablet PO Q6H PRN Nausea And Vomiting Polyethylene Glycol 17 gm 04/12/20 09:00 04/16/20 09:22 Polyethylene Glycol 3350 17 Gm Powd.Pack PO 17 gm QAM PHAN Administration Sodium Chloride 1 gm 04/13/20 16:00 04/16/20 09:22 Sodium Chloride 1 Gm Tablet PO 1 gm Q12HR PHAN Administration Tizanidine HCl 2 mg 04/16/20 21:00 Tizanidine Hcl 2 Mg Tablet PO HS [facility] Progress Note: A&P Assessment and Plan (1) Hyponatremia: Code(s): E87.1 - Hypo-osmolality and hyponatremia Status: Acute (2) Anxiety: Code(s): F41.9 - Anxiety disorder, unspecified Status: Acute (3) Hyperlipidemia: Code(s): E78.5 - Hyperlipidemia, unspecified Status: Acute (4) GERD (gastroesophageal reflux disease): Code(s): K21.9 - Gastro-esophageal reflux disease without esophagitis Status: Acute (5) Hypertension: Code(s): I10 - Essential (primary) h
[2020-04-16 14:00] VITALS: BP 131/58; PULSE 70; RESP 18; TEMP 36.8; O2SAT 95
[2020-04-16] MEDS: ATORVASTATIN 40 MG TABLET PO (20:42)
[2020-04-16] MEDS: TIZANIDINE HCL 2 MG TABLET PO (20:42)
[2020-04-16] MEDS: ACETAMINOPHEN 325 MG TABLET 650 MG PO (20:56)
[2020-04-16 22:00] VITALS: BP 122/80; PULSE 91; RESP 14; TEMP 36.6; O2SAT 96
[2020-04-17 04:47] LABS: Basophils Absolute Auto 0.1 K/mm3 (0.0-0.1); Basophils Percent Auto 0.7 % (0.2-1.2); Eosinophils Absolute Auto 0.3 K/mm3 (0-0.3); Eosinophils Percent Auto 3.2 % (0-4.4); Hematocrit 38.9 % (37.0-47.0); Hemoglobin 13.3 g/dL (12.0-15.0); Immature Granulocyte Absolute 0.08 K/mm3 (0.00-0.031); Lymphocytes Absolute Auto 1.26 K/mm3 (0.9-3.2); Lymphocytes Percent Auto 15.5 % (18.3-44.2); Mean Corpuscular HGB Conc 34.2 g/dl (32-36); Mean Corpuscular Hemoglobin 28.3 pg (26-34); Mean Corpuscular Volume 82.8 fl (80-100); Mean Platelet Volume 8.4 fl (7.4-10.4); Monocytes Absolute Auto 0.9 K/mm3 (0.1-0.6); Monocytes Percent Auto 10.7 % (2.6-8.5); Neutrophils Absolute Auto 5.6 K/mm3 (1.3-6.7); Neutrophils Percent Auto 68.9 % (45.5-73.1); Platelet Count Result 405 k/mm3 (150-375); Red Cell Distribution Width 12.5 % (11.5-14.5); White Blood Count 8.1 K/mm3 (4.5-10.0)
[2020-04-17 05:06] LABS: Blood Urea Nitrogen 9 mg/dL (7-17); Calcium 10.1 mg/dL (8.4-10.2); Carbon Dioxide 32 mmol/L (22-30); Chloride 89 mmol/L (98-107); Estimated CRCL calculation 65 ml/min; Estimated Glomerular Filt Rate > 60; Glucose 102 mg/dL (65-105); Potassium 4.5 mmol/L (3.4-5.0)
[2020-04-17 05:24] LABS: Anion Gap 5 mmol/L (8-16); Sodium 126 mmol/L (137-145)
[2020-04-17] MEDS: LEVOTHYROXINE SODIUM 50 MCG TABLET PO (05:55)
[2020-04-17 06:00] VITALS: BP 170/63; PULSE 70; RESP 18; TEMP 36.4; O2SAT 97
[2020-04-17] MEDS: SODIUM CHLORIDE 1 GM TABLET PO ×2 (08:29→20:28)
[2020-04-17] MEDS: amLODIPine BESYLATE 5 MG TABLET PO (08:29)
[2020-04-17] MEDS: lisinopriL 10 MG TABLET PO ×2 (08:29→18:13)
[2020-04-17] MEDS: ASPIRIN 81 MG CHEWABLE TABLET PO (08:29)
[2020-04-17] MEDS: polyethylene glycoL 3350 17 GM POWD.PACK PO (08:29)
[2020-04-17] MEDS: ENOXAPARIN 40 MG/0.4 ML SYRINGE SUB-Q (08:29)
[2020-04-17] MEDS: CLOPIDOGREL BISULFATE 75 MG TABLET PO (08:29)
[2020-04-17 14:00] VITALS: BP 139/73; PULSE 76; RESP 18; TEMP 36.6; O2SAT 97
[2020-04-17] MEDS: TIZANIDINE HCL 2 MG TABLET PO (20:28)
[2020-04-17] MEDS: ATORVASTATIN 40 MG TABLET PO (20:28)
[2020-04-17 21:32] VITALS: BP 154/75; PULSE 74; RESP 16; TEMP 36.6; O2SAT 96
[2020-04-18] MEDS: LEVOTHYROXINE SODIUM 50 MCG TABLET PO (05:53)
[2020-04-18 06:00] VITALS: BP 149/58; PULSE 66; RESP 18; TEMP 36.6; O2SAT 95
[2020-04-18] MEDS: CLOPIDOGREL BISULFATE 75 MG TABLET PO (08:51)
[2020-04-18] MEDS: lisinopriL 10 MG TABLET PO ×2 (08:51→17:28)
[2020-04-18] MEDS: ENOXAPARIN 40 MG/0.4 ML SYRINGE SUB-Q (08:51)
[2020-04-18] MEDS: amLODIPine BESYLATE 5 MG TABLET PO (08:51)
[2020-04-18] MEDS: SODIUM CHLORIDE 1 GM TABLET PO ×3 (08:51→20:40)
[2020-04-18] MEDS: ASPIRIN 81 MG CHEWABLE TABLET PO (08:51)
--- NOTE | 2020-04-18 08:57 | PC.NURSE ---
pt refused miralax. states she had BM yesterday and doesn't want it. updated.
--- NOTE | 2020-04-18 10:46 | WPDNEURORHBP ---
Subjective Date/time seen: 04/18/20 10:46 Interval history: this 85-year-old is here after having had stroke which has left her with the relatively improving left-sided hemiplegia she walked 28 feet without course moderate assistance she remains cheerful jovial denies any headache nausea vomiting chest pain shortness of breath fever chills sore throat she does seem to have a at least a mild cognitive deficit in the form of short-term memory and not realizing the deficit she has Review of Systems Review of Systems: Narrative: patient is awake alert well oriented All systems reviewed & are unremarkable except as noted in HPI and below Functional Status Ambulation Ability Ability to Ambulate 10 Feet: Moderate Assistance X 1 Ambulation Assistive Devices: Cane, Clark Exam Narrative: Exam Narrative: patient is awake and alert and does have mild deficit with fluent speech left-sided neglect left-sided visual field defect left-sided hemiparesis and left-sided sensory deficit needing assistance in the activities of daily living Neck is supple lungs are clear cardiovascular exam is negative abdomen is soft and tender extremities reveal no deformities Objective Data Vital Signs Vital Signs: Vital Signs - 24 hr 04/17/20 14:00 04/17/20 21:32 04/18/20 06:00 Temperature 36.6 C 36.6 C 36.6 C Pulse Rate 76 74 66 Respiratory Rate 18 16 18 Blood Pressure 139/73 154/75 H 149/58 H Pulse Oximetry 97 96 95 Intake/Output Intake/Output: Intake & Output 04/15/20 04/16/20 04/17/20 04/18/20 23:59 23:59 23:59 23:59 Intake Total 720 780 600 240 Balance 720 780 600 240 Meds/Results Medications: Active Medications Generic Name Dose Route Start Last Admin Trade Name Freq PRN Reason Stop Dose Admin Acetaminophen 650 mg 04/09/20 21:24 04/16/20 20:56 Acetaminophen 325 Mg Tablet PO 650 mg Q4H PRN Administration Mild Pain (1-3) or Fever Amlodipine Besylate 5 mg 04/15/20 22:40 04/18/20 08:51 Amlodipine Besylate 5 Mg Tablet PO 5 mg QAM PHAN Administration Aspirin 81 mg 04/10/20 08:00 04/18/20 08:51 Aspirin 81 Mg Chewable Tablet PO 81 mg DAILY@0800 [facility] Administration Atorvastatin Calcium 40 mg 04/09/20 21:30 04/17/20 20:28 Atorvastatin 40 Mg Tablet PO 40 mg HS PHAN Administration Clopidogrel Bisulfate 75 mg 04/10/20 09:00 04/18/20 08:51 Clopidogrel Bisulfate 75 Mg Tablet PO 75 mg DAILY PHAN Administration Enoxaparin Sodium 40 mg 04/12/20 09:00 04/18/20 08:51 Enoxaparin 40 Mg/0.4 Ml Syringe SUB-Q 40 mg DAILY PHAN Administration Levothyroxine Sodium 50 mcg 04/10/20 06:30 04/18/20 05:53 Levothyroxine Sodium 50 Mcg Tablet PO 50 mcg DAILY@0630 PHAN Administration Lisinopril 10 mg 04/10/20 09:00 04/18/20 08:51 Lisinopril 10 Mg Tablet PO 10 mg BID PHAN Administration Melatonin 5 mg 04/09/20 21:24 04/15/20 20:52 Melatonin 5 Mg Tablet PO 5 mg HS PRN Administration Sleep Ondansetron HCl 4 mg 04/10/20 11:34 Ondansetron Hcl Odt 4 Mg Tablet PO Q6H PRN Nausea And Vomiting Polyethylene Glycol 17 gm 04/12/20 09:00 04/18/20 08:56 Polyethylene Glycol 3350 17 Gm Powd.Pack PO Not Given QAM PHAN Sodium Chloride 1 gm 04/18/20 14:00 Sodium Chloride 1 Gm Tablet PO Q8HR PHAN Tizanidine HCl 2 mg 04/16/20 21:00 04/17/20 20:28 Tizanidine Hcl 2 Mg Tablet PO 2 mg HS PHAN Administration Progress Note: A&P Assessment and Plan (1) Hyponatremia: Code(s): E87.1 - Hypo-osmolality and hyponatremia Status: Acute (2) Leukocytosis: Code(s): D72.829 - Elevated white blood cell count, unspecified Status: Resolved (3) Anxiety: Code(s): F41.9 - Anxiety disorder, unspecified Status: Acute (4) Hyperlipidemia: Code(s): E78.5 - Hyperlipidemia, unspecified Status: Acute (5) GERD (gastroesophageal reflux disease): Code(s): K21.9 - Gastro-esophageal reflux d
[2020-04-18 14:00] VITALS: BP 145/68; PULSE 78; RESP 16; TEMP 36.8; O2SAT 96
[2020-04-18] MEDS: ATORVASTATIN 40 MG TABLET PO (20:40)
[2020-04-18] MEDS: TIZANIDINE HCL 2 MG TABLET PO (20:41)
[2020-04-18 22:00] VITALS: BP 138/57; PULSE 74; RESP 16; TEMP 36.2; O2SAT 95
[2020-04-19] MEDS: LEVOTHYROXINE SODIUM 50 MCG TABLET PO (05:43)
[2020-04-19] MEDS: SODIUM CHLORIDE 1 GM TABLET PO ×2 (05:43→19:58)
[2020-04-19 06:00] VITALS: BP 164/74; PULSE 80; RESP 16; TEMP 36.2; O2SAT 98
[2020-04-19 08:00] VITALS: PULSE 80; RESP 16; O2SAT 98
[2020-04-19] MEDS: amLODIPine BESYLATE 5 MG TABLET PO (08:56)
[2020-04-19] MEDS: ASPIRIN 81 MG CHEWABLE TABLET PO (08:56)
[2020-04-19] MEDS: ENOXAPARIN 40 MG/0.4 ML SYRINGE SUB-Q (08:56)
[2020-04-19] MEDS: CLOPIDOGREL BISULFATE 75 MG TABLET PO (08:56)
[2020-04-19] MEDS: lisinopriL 10 MG TABLET PO ×2 (08:56→17:18)
[2020-04-19] MEDS: polyethylene glycoL 3350 17 GM POWD.PACK PO (08:57)
--- NOTE | 2020-04-19 13:51 | WPDNEURORHBP ---
Subjective Date/time seen: 04/19/20 13:51 85 years old female admitted to the rehab with the diagnosis of left parietal periventricular acute infarct and acute infarct of the right internal capsule posterior limb in addition to comorbid conditions of 1. Hypertension 2. Hyperlipidemia 3. Hypothyroidism 4. Anxiety 5. History of macular degeneration and with no history of smoking or drinking has been involved in the physical therapy and occupational therapy. Routine lab studies are normal except that she is hyponatremic though she is not receiving any diuretic and also on sodium chloride 1 g q.8 hours Review of Systems Review of Systems: All systems reviewed & are unremarkable except as noted in HPI and below Functional Status Ambulation Ability Ability to Ambulate 10 Feet: Moderate Assistance X 1 Ambulation Assistive Devices: Cane, Clark Exam Narrative: Exam Narrative: examination today reveals her to be awake alert cooperative able to carry out the conversation and manifest left-sided neglect the left visual field cut and left hemiparesis, heart regular, lungs clear, abdomen soft Objective Data Vital Signs Vital Signs: Vital Signs - 24 hr 04/18/20 14:00 04/18/20 22:00 04/19/20 06:00 Temperature 36.8 C 36.2 C L 36.2 C L Pulse Rate 78 74 80 Respiratory Rate 16 16 16 Blood Pressure 145/68 H 138/57 L 164/74 H Pulse Oximetry 96 95 98 04/19/20 08:00 Temperature Pulse Rate 80 Respiratory Rate 16 Blood Pressure Pulse Oximetry 98 Intake/Output Intake/Output: Intake & Output 04/16/20 04/17/20 04/18/20 04/19/20 23:59 23:59 23:59 23:59 Intake Total 780 600 720 480 Balance 780 600 720 480 Meds/Results Medications: Active Medications Generic Name Dose Route Start Last Admin Trade Name Freq PRN Reason Stop Dose Admin Acetaminophen 650 mg 04/09/20 21:24 04/16/20 20:56 Acetaminophen 325 Mg Tablet PO 650 mg Q4H PRN Administration Mild Pain (1-3) or Fever Amlodipine Besylate 5 mg 04/15/20 22:40 04/19/20 08:56 Amlodipine Besylate 5 Mg Tablet PO 5 mg QAM PHAN Administration Aspirin 81 mg 04/10/20 08:00 04/19/20 08:56 Aspirin 81 Mg Chewable Tablet PO 81 mg DAILY@0800 [facility]AN Administration Atorvastatin Calcium 40 mg 04/09/20 21:30 04/18/20 20:40 Atorvastatin 40 Mg Tablet PO 40 mg HS PHAN Administration Clopidogrel Bisulfate 75 mg 04/10/20 09:00 04/19/20 08:56 Clopidogrel Bisulfate 75 Mg Tablet PO 75 mg DAILY PHAN Administration Enoxaparin Sodium 40 mg 04/12/20 09:00 04/19/20 08:56 Enoxaparin 40 Mg/0.4 Ml Syringe SUB-Q 40 mg DAILY PHAN Administration Levothyroxine Sodium 50 mcg 04/10/20 06:30 04/19/20 05:43 Levothyroxine Sodium 50 Mcg Tablet PO 50 mcg DAILY@0630 [facility]AN Administration Lisinopril 10 mg 04/10/20 09:00 04/19/20 08:56 Lisinopril 10 Mg Tablet PO 10 mg BID PHAN Administration Melatonin 5 mg 04/09/20 21:24 04/15/20 20:52 Melatonin 5 Mg Tablet PO 5 mg HS PRN Administration Sleep Ondansetron HCl 4 mg 04/10/20 11:34 Ondansetron Hcl Odt 4 Mg Tablet PO Q6H PRN Nausea And Vomiting Polyethylene Glycol 17 gm 04/12/20 09:00 04/19/20 08:57 Polyethylene Glycol 3350 17 Gm Powd.Pack PO 17 gm QAM PHAN Administration Sodium Chloride 1 gm 04/18/20 14:00 04/19/20 05:43 Sodium Chloride 1 Gm Tablet PO 1 gm Q8HR PHAN Administration Tizanidine HCl 2 mg 04/16/20 21:00 04/18/20 20:41 Tizanidine Hcl 2 Mg Tablet PO 2 mg HS PHAN Administration Progress Note: A&P Assessment and Plan (1) Hyponatremia: Code(s): E87.1 - Hypo-osmolality and hyponatremia Status: Acute (2) Leukocytosis: Code(s): D72.829 - Elevated white blood cell count, unspecified Status: Resolved (3) Anxiety: Code(s): F41.9 - Anxiety disorder, unspecified Status: Acute (4) GERD (gastroesophageal reflux disease): Code(s): K21.9 - Gastro-esophageal reflux disease
[2020-04-19 14:00] VITALS: BP 127/59; PULSE 74; RESP 18; TEMP 36.8; O2SAT 98
[2020-04-19] MEDS: MELATONIN 5 MG TABLET PO (19:58)
[2020-04-19] MEDS: ACETAMINOPHEN 325 MG TABLET 650 MG PO (19:58)
[2020-04-19] MEDS: TIZANIDINE HCL 2 MG TABLET PO (19:58)
[2020-04-19] MEDS: ATORVASTATIN 40 MG TABLET PO (19:58)
[2020-04-19 22:00] VITALS: BP 115/45; PULSE 70; RESP 18; TEMP 37; O2SAT 96
[2020-04-20 06:00] VITALS: BP 151/57; PULSE 60; RESP 20; TEMP 36.3; O2SAT 98
[2020-04-20] MEDS: LEVOTHYROXINE SODIUM 50 MCG TABLET PO (06:03)
[2020-04-20] MEDS: SODIUM CHLORIDE 1 GM TABLET PO ×3 (06:04→20:55)
[2020-04-20 08:00] VITALS: PULSE 60; RESP 20; O2SAT 98
[2020-04-20] MEDS: amLODIPine BESYLATE 5 MG TABLET PO (08:57)
[2020-04-20] MEDS: ENOXAPARIN 40 MG/0.4 ML SYRINGE SUB-Q (08:58)
[2020-04-20] MEDS: polyethylene glycoL 3350 17 GM POWD.PACK PO (08:58)
[2020-04-20] MEDS: lisinopriL 10 MG TABLET PO ×2 (08:58→16:53)
[2020-04-20] MEDS: ASPIRIN 81 MG CHEWABLE TABLET PO (08:58)
[2020-04-20] MEDS: CLOPIDOGREL BISULFATE 75 MG TABLET PO (08:58)
--- NOTE | 2020-04-20 13:45 | WPDREHABHP ---
H&P: HPI History of Present Illness Date/Time: 04/20/20 13:45 85 years old lady admitted to the hospital with the left hemispheric stroke in addition to the ongoing history of hypertension hyperlipidemia and hypothyroidism, underlying macular degeneration and anxiety is involved with physical therapy and occupational therapy, remains afebrile Chief complaint: CVA Narrative: Lori Rodriguez is a 85 year old female Review of Systems Review of Systems All systems reviewed & are unremarkable except as noted in HPI and below PMFSH Past Medical History Medical History (Updated 04/13/20 @ 15:34 by Layton Condon MD) Anxiety GERD (gastroesophageal reflux disease) History of bronchitis History of macular degeneration History of pneumonia History of UTI Hyperlipidemia Hypertension Family History Family History Other Hypertension Heart disease Social History Social History Smoking status: Never smoker Alcohol intake: never Substance use: never Substance use type: does not use Gender identity (if verbalized by the patient): Female Spiritual care concerns: No Meds Home Medications and Allergies Home Medications Medication Instructions Recorded Confirmed Type acetaminophen 650 mg PO PRN PRN 04/09/20 04/09/20 History aspirin 81 mg PO DAILY 04/09/20 04/09/20 History atorvastatin 40 mg PO HS 04/09/20 04/09/20 History clopidogrel [Plavix] 75 mg PO DAILY 04/09/20 04/09/20 History levothyroxine 50 mcg PO DAILY 04/09/20 04/09/20 History lisinopril 10 mg PO BID 04/09/20 04/09/20 History melatonin 5 mg PO HS PRN 04/09/20 04/09/20 History Allergies Allergy/AdvReac Type Severity Reaction Status Date / Time No Known Allergies Allergy Verified 04/18/20 18:18 Vital Signs Vital Signs - 24 hr 04/19/20 14:00 04/19/20 22:00 04/20/20 06:00 Temperature 36.8 C 37.0 C 36.3 C L Pulse Rate 74 70 60 Respiratory Rate 18 18 20 Blood Pressure 127/59 L 115/45 L 151/57 H Pulse Oximetry 98 96 98 04/20/20 08:00 Temperature Pulse Rate 60 Respiratory Rate 20 Blood Pressure Pulse Oximetry 98 Exam Narrative Exam Narrative: on examination today she is awake alert cooperative ,,head normocephalic with no cranial bruit, ear nose throat examination normal,. Neck is supple with no restricted range of motion. Heart regular with no murmur. Lungs clear with no rhonchi or crepitation ,abdomen is soft with normal bowel sounds no organomegaly and neuro examination with left hemiparesis along with the left visual field cut Assessment and Plan Assessment and plan (1) Hyponatremia: Code(s): E87.1 - Hypo-osmolality and hyponatremia Status: Acute (2) Leukocytosis: Code(s): D72.829 - Elevated white blood cell count, unspecified Status: Resolved (3) Anxiety: Code(s): F41.9 - Anxiety disorder, unspecified Status: Acute (4) Hyperlipidemia: Code(s): E78.5 - Hyperlipidemia, unspecified Status: Acute (5) GERD (gastroesophageal reflux disease): Code(s): K21.9 - Gastro-esophageal reflux disease without esophagitis Status: Acute (6) Hypertension: Code(s): I10 - Essential (primary) hypertension Status: Acute (7) Left hemiplegia: Code(s): G81.94 - Hemiplegia, unspecified affecting left nondominant side Status: Acute (8) Stroke: Code(s): I63.9 - Cerebral infarction, unspecified Status: Acute Additional Plan continue the treatment as such
[2020-04-20 14:00] VITALS: BP 123/49; PULSE 66; RESP 16; TEMP 36.9; O2SAT 100
[2020-04-20] MEDS: ATORVASTATIN 40 MG TABLET PO (20:56)
[2020-04-20] MEDS: TIZANIDINE HCL 2 MG TABLET PO (20:56)
[2020-04-20 22:00] VITALS: BP 131/98; PULSE 74; RESP 17; TEMP 36.2; O2SAT 96
[2020-04-20] MEDS: MELATONIN 5 MG TABLET PO (23:41)
[2020-04-21 05:48] LABS: Anion Gap 3 mmol/L (8-16); Blood Urea Nitrogen 9 mg/dL (7-17); Calcium 9.9 mg/dL (8.4-10.2); Carbon Dioxide 31 mmol/L (22-30); Chloride 94 mmol/L (98-107); Estimated CRCL calculation 65 ml/min; Estimated Glomerular Filt Rate > 60; Glucose 102 mg/dL (65-105); Potassium 4.2 mmol/L (3.4-5.0); Sodium 128 mmol/L (137-145)
[2020-04-21] MEDS: SODIUM CHLORIDE 1 GM TABLET PO ×3 (05:53→20:44)
[2020-04-21] MEDS: LEVOTHYROXINE SODIUM 50 MCG TABLET PO (05:53)
[2020-04-21 06:00] VITALS: BP 149/65; PULSE 65; RESP 17; TEMP 36; O2SAT 96
[2020-04-21 08:00] VITALS: PULSE 65; RESP 17; O2SAT 96
[2020-04-21] MEDS: ASPIRIN 81 MG CHEWABLE TABLET PO (08:57)
[2020-04-21] MEDS: lisinopriL 10 MG TABLET PO ×2 (08:57→17:24)
[2020-04-21] MEDS: CLOPIDOGREL BISULFATE 75 MG TABLET PO (08:57)
[2020-04-21] MEDS: amLODIPine BESYLATE 5 MG TABLET PO (08:57)
[2020-04-21] MEDS: polyethylene glycoL 3350 17 GM POWD.PACK PO (08:58)
[2020-04-21] MEDS: ENOXAPARIN 40 MG/0.4 ML SYRINGE SUB-Q (08:58)
[2020-04-21 14:00] VITALS: BP 123/60; PULSE 62; RESP 16; TEMP 37.1; O2SAT 97
[2020-04-21] MEDS: TIZANIDINE HCL 2 MG TABLET PO (20:44)
[2020-04-21] MEDS: ATORVASTATIN 40 MG TABLET PO (20:44)
[2020-04-21 20:46] VITALS: BP 137/59; PULSE 66; RESP 18; TEMP 36.4; O2SAT 97
[2020-04-21] MEDS: MELATONIN 5 MG TABLET PO (23:14)
[2020-04-22 05:02] VITALS: BP 148/61; PULSE 64; RESP 18; TEMP 36.6; O2SAT 95
[2020-04-22] MEDS: SODIUM CHLORIDE 1 GM TABLET PO ×3 (05:42→20:18)
[2020-04-22] MEDS: LEVOTHYROXINE SODIUM 50 MCG TABLET PO (05:42)
[2020-04-22] MEDS: lisinopriL 10 MG TABLET PO ×2 (09:50→17:09)
[2020-04-22] MEDS: ENOXAPARIN 40 MG/0.4 ML SYRINGE SUB-Q (09:50)
[2020-04-22] MEDS: ASPIRIN 81 MG CHEWABLE TABLET PO (09:50)
[2020-04-22] MEDS: CLOPIDOGREL BISULFATE 75 MG TABLET PO (09:50)
[2020-04-22] MEDS: amLODIPine BESYLATE 5 MG TABLET PO (09:50)
[2020-04-22 14:00] VITALS: BP 147/64; PULSE 87; RESP 18; TEMP 36.4; O2SAT 97
--- NOTE | 2020-04-22 14:36 | PCNFU ---
Nutrition Follow-Up Complete: Predicted inadequate energy intake related to recovery from stroke, as evidenced by inconsistent appetite and intake record. Pt. will regain consistent appetite and consume at least 90% of caloric needs to promote recovery. Goal: in progress Pt current nutrition is regular, which is appropriate. Patient consuming 75-100% of most meals. Nutrition recommendation: none at this time. Last recorded weight is 58.6 kg, recommend updating before discharge. Bowel Motility: last recorded BM from nurse spreadsheet on 04/21. Labs Reviewed: Na (128), BUN (9), Cr (.5) Meds Noted: sodium chloride tabs, Miralax, Prinivil, Lovenox, Plavix, Norvasc, Synthroid, Additional Notes: integumentary integrity is WNL. Monitor pt intake and output records; follow up in 7 days.
--- NOTE | 2020-04-22 14:57 | PCNSR ---
On 04/22/20, the student, Luz Chen, provided care and completed [facility] documentation on this patient. I have reviewed the student's documentation and agree with the findings.
--- NOTE | 2020-04-22 17:26 | WPDNEURORHBP ---
Subjective Date/time seen: 04/22/20 17:26 85 years old admitted to the rehab floor with left hemispheric stroke in addition to ongoing diagnosis of hypertension hyperlipidemia and hypothyroidism also underlying macular degeneration with anxiety Review of Systems Review of Systems: All systems reviewed & are unremarkable except as noted in HPI and below Functional Status Ambulation Ability Ability to Ambulate 10 Feet: Moderate Assistance X 1 Ambulation Assistive Devices: Cane, Clark Transfers Ability Ability to Transfer In/Out of Chair: Moderate Assistance X 1 Exam Narrative: Exam Narrative: on examination today she is awake alert cooperative, ear nose throat exams are normal ,neck supple with no cervical bruit , no restriction of the range of motion ,heart regular with no murmur ,lungs clear with no rhonchi or crepitation, abdomen is soft with no organomegaly ,neurological examination with left hemiparesis along with the left visual field cut and underlying macular degeneration as well as documented previously Objective Data Vital Signs Vital Signs: Vital Signs - 24 hr 04/21/20 20:46 04/22/20 05:02 04/22/20 14:00 Temperature 36.4 C 36.6 C 36.4 C L Pulse Rate 66 64 87 Respiratory Rate 18 18 18 Blood Pressure 137/59 L 148/61 H 147/64 H Pulse Oximetry 97 95 97 Intake/Output Intake/Output: Intake & Output 04/19/20 04/20/20 04/21/20 04/22/20 23:59 23:59 23:59 23:59 Intake Total 595 595 800 840 Balance 595 595 800 840 Meds/Results Medications: Active Medications Generic Name Dose Route Start Last Admin Trade Name Freq PRN Reason Stop Dose Admin Acetaminophen 650 mg 04/09/20 21:24 04/19/20 19:58 Acetaminophen 325 Mg Tablet PO 650 mg Q4H PRN Administration Mild Pain (1-3) or Fever Amlodipine Besylate 5 mg 04/15/20 22:40 04/22/20 09:50 Amlodipine Besylate 5 Mg Tablet PO 5 mg QAM PHAN Administration Aspirin 81 mg 04/10/20 08:00 04/22/20 09:50 Aspirin 81 Mg Chewable Tablet PO 81 mg DAILY@0800 PHAN Administration Atorvastatin Calcium 40 mg 04/09/20 21:30 04/21/20 20:44 Atorvastatin 40 Mg Tablet PO 40 mg HS PHAN Administration Clopidogrel Bisulfate 75 mg 04/10/20 09:00 04/22/20 09:50 Clopidogrel Bisulfate 75 Mg Tablet PO 75 mg DAILY PHAN Administration Enoxaparin Sodium 40 mg 04/12/20 09:00 04/22/20 09:50 Enoxaparin 40 Mg/0.4 Ml Syringe SUB-Q 40 mg DAILY PHAN Administration Levothyroxine Sodium 50 mcg 04/10/20 06:30 04/22/20 05:42 Levothyroxine Sodium 50 Mcg Tablet PO 50 mcg DAILY@0630 PHAN Administration Lisinopril 10 mg 04/10/20 09:00 04/22/20 17:09 Lisinopril 10 Mg Tablet PO 10 mg BID PHAN Administration Melatonin 5 mg 04/09/20 21:24 04/21/20 23:14 Melatonin 5 Mg Tablet PO 5 mg HS PRN Administration Sleep Ondansetron HCl 4 mg 04/10/20 11:34 Ondansetron Hcl Odt 4 Mg Tablet PO Q6H PRN Nausea And Vomiting Polyethylene Glycol 17 gm 04/12/20 09:00 04/22/20 09:54 Polyethylene Glycol 3350 17 Gm Powd.Pack PO Not Given QAM PHAN Sodium Chloride 1 gm 04/18/20 14:00 04/22/20 14:03 Sodium Chloride 1 Gm Tablet PO 1 gm Q8HR PHAN Administration Tizanidine HCl 2 mg 04/16/20 21:00 04/21/20 20:44 Tizanidine Hcl 2 Mg Tablet PO 2 mg HS PHAN Administration Progress Note: A&P Assessment and Plan (1) Hyponatremia: Code(s): E87.1 - Hypo-osmolality and hyponatremia Status: Acute (2) Leukocytosis: Code(s): D72.829 - Elevated white blood cell count, unspecified Status: Resolved (3) Anxiety: Code(s): F41.9 - Anxiety disorder, unspecified Status: Acute (4) Hyperlipidemia: Code(s): E78.5 - Hyperlipidemia, unspecified Status: Acute (5) GERD (gastroesophageal reflux disease): Code(s): K21.9 - Gastro-esophageal reflux disease without esophagitis Status: Acute (6) Hypertension: Code(s): I10 - [facility]
[2020-04-22] MEDS: TIZANIDINE HCL 2 MG TABLET PO (20:18)
[2020-04-22] MEDS: ACETAMINOPHEN 325 MG TABLET 650 MG PO (20:18)
[2020-04-22] MEDS: ATORVASTATIN 40 MG TABLET PO (20:18)
[2020-04-22] MEDS: MELATONIN 5 MG TABLET PO (20:20)
[2020-04-22 22:00] VITALS: BP 147/65; PULSE 69; RESP 17; TEMP 36.6; O2SAT 97
[2020-04-23] MEDS: LEVOTHYROXINE SODIUM 50 MCG TABLET PO (05:54)
[2020-04-23] MEDS: SODIUM CHLORIDE 1 GM TABLET PO ×3 (05:54→20:34)
[2020-04-23 06:00] VITALS: BP 147/63; PULSE 65; RESP 17; TEMP 36.1; O2SAT 99
[2020-04-23] MEDS: amLODIPine BESYLATE 5 MG TABLET PO (09:02)
[2020-04-23] MEDS: ENOXAPARIN 40 MG/0.4 ML SYRINGE SUB-Q (09:02)
[2020-04-23] MEDS: CLOPIDOGREL BISULFATE 75 MG TABLET PO (09:02)
[2020-04-23] MEDS: ASPIRIN 81 MG CHEWABLE TABLET PO (09:02)
[2020-04-23] MEDS: lisinopriL 10 MG TABLET PO ×2 (09:02→17:54)
--- NOTE | 2020-04-23 09:02 | PC.NURSE ---
pt refuses miralax this morning stating she doesn't feel like she needs it. updated.
[2020-04-23 14:00] VITALS: BP 145/61; PULSE 73; RESP 18; TEMP 36.2; O2SAT 97
--- NOTE | 2020-04-23 17:38 | WPDNEURORHBP ---
Subjective Date/time seen: 04/23/20 17:38 85 years old with left hemispheric stroke in addition to hypertension ,hypothyroidism, and hyperlipidemia along with macular degeneration involved in the physical therapy and occupational therapy ,ambulating 10ft with moderate assistance and able to transfer in and out of chair with moderate assistance of 1 Functional Status Ambulation Ability Ability to Ambulate 10 Feet: Moderate Assistance X 1 Ambulation Assistive Devices: Cane, Clark Transfers Ability Ability to Transfer In/Out of Chair: Moderate Assistance X 1 Exam Narrative: Exam Narrative: she is awake cooperative ear nose throat examination normal mucous membranes are moist neck is supple heart regular lungs clear neuro examination unchanged Objective Data Vital Signs Vital Signs: Vital Signs - 24 hr 04/22/20 22:00 04/23/20 06:00 04/23/20 14:00 Temperature 36.6 C 36.1 C L 36.2 C L Pulse Rate 69 65 73 Respiratory Rate 17 17 18 Blood Pressure 147/65 H 147/63 H 145/61 H Pulse Oximetry 97 99 97 Intake/Output Intake/Output: Intake & Output 04/20/20 04/21/20 04/22/20 04/23/20 23:59 23:59 23:59 23:59 Intake Total 639 785 1088 530 Balance 654 027 3507 530 Meds/Results Medications: Active Medications Generic Name Dose Route Start Last Admin Trade Name Freq PRN Reason Stop Dose Admin Acetaminophen 650 mg 04/09/20 21:24 04/22/20 20:18 Acetaminophen 325 Mg Tablet PO 650 mg Q4H PRN Administration Mild Pain (1-3) or Fever Amlodipine Besylate 5 mg 04/15/20 22:40 04/23/20 09:02 Amlodipine Besylate 5 Mg Tablet PO 5 mg QAM PHAN Administration Aspirin 81 mg 04/10/20 08:00 04/23/20 09:02 Aspirin 81 Mg Chewable Tablet PO 81 mg DAILY@0800 PHAN Administration Atorvastatin Calcium 40 mg 04/09/20 21:30 04/22/20 20:18 Atorvastatin 40 Mg Tablet PO 40 mg HS PHAN Administration Clopidogrel Bisulfate 75 mg 04/10/20 09:00 04/23/20 09:02 Clopidogrel Bisulfate 75 Mg Tablet PO 75 mg DAILY PHAN Administration Enoxaparin Sodium 40 mg 04/12/20 09:00 04/23/20 09:02 Enoxaparin 40 Mg/0.4 Ml Syringe SUB-Q 40 mg DAILY PHAN Administration Levothyroxine Sodium 50 mcg 04/10/20 06:30 04/23/20 05:54 Levothyroxine Sodium 50 Mcg Tablet PO 50 mcg DAILY@0630 PHAN Administration Lisinopril 10 mg 04/10/20 09:00 04/23/20 09:02 Lisinopril 10 Mg Tablet PO 10 mg BID PHAN Administration Melatonin 5 mg 04/09/20 21:24 04/22/20 20:20 Melatonin 5 Mg Tablet PO 5 mg HS PRN Administration Sleep Ondansetron HCl 4 mg 04/10/20 11:34 Ondansetron Hcl Odt 4 Mg Tablet PO Q6H PRN Nausea And Vomiting Polyethylene Glycol 17 gm 04/23/20 09:23 Polyethylene Glycol 3350 17 Gm Powd.Pack PO QAM PRN Constipation Sodium Chloride 1 gm 04/18/20 14:00 04/23/20 13:59 Sodium Chloride 1 Gm Tablet PO 1 gm Q8HR PHAN Administration Tizanidine HCl 2 mg 04/16/20 21:00 04/22/20 20:18 Tizanidine Hcl 2 Mg Tablet PO 2 mg HS PHAN Administration Progress Note: A&P Assessment and Plan (1) Hyponatremia: Code(s): E87.1 - Hypo-osmolality and hyponatremia Status: Acute (2) Leukocytosis: Code(s): D72.829 - Elevated white blood cell count, unspecified Status: Resolved (3) Anxiety: Code(s): F41.9 - Anxiety disorder, unspecified Status: Acute (4) Hyperlipidemia: Code(s): E78.5 - Hyperlipidemia, unspecified Status: Acute (5) GERD (gastroesophageal reflux disease): Code(s): K21.9 - Gastro-esophageal reflux disease without esophagitis Status: Acute (6) Left hemiplegia: Code(s): G81.94 - Hemiplegia, unspecified affecting left nondominant side Status: Acute (7) Hypertension: Code(s): I10 - Essential (primary) hypertension Status: Acute (8) Stroke: Code(s): I63.9 - Cerebral infarction, unspecified Status: Acute Additional Plan
[2020-04-23] MEDS: MELATONIN 5 MG TABLET PO (20:34)
[2020-04-23] MEDS: ATORVASTATIN 40 MG TABLET PO (20:35)
[2020-04-23] MEDS: TIZANIDINE HCL 2 MG TABLET PO (20:35)
[2020-04-23] MEDS: ACETAMINOPHEN 325 MG TABLET 650 MG PO (20:35)
[2020-04-23 22:00] VITALS: BP 97/76; PULSE 71; RESP 18; TEMP 36.1; O2SAT 97
[2020-04-24 05:24] LABS: Basophils Absolute Auto 0.1 K/mm3 (0.0-0.1); Basophils Percent Auto 0.7 % (0.2-1.2); Eosinophils Absolute Auto 0.4 K/mm3 (0-0.3); Eosinophils Percent Auto 6.1 % (0-4.4); Hematocrit 35.5 % (37.0-47.0); Immature Granulocyte Absolute 0.05 K/mm3 (0.00-0.031); Immature Granulocyte Percent A 0.7 % (0-0.5); Lymphocytes Absolute Auto 1.12 K/mm3 (0.9-3.2); Lymphocytes Percent Auto 15.4 % (18.3-44.2); Mean Corpuscular HGB Conc 33.8 g/dl (32-36); Mean Corpuscular Volume 85.7 fl (80-100); Mean Platelet Volume 8.7 fl (7.4-10.4); Monocytes Absolute Auto 0.6 K/mm3 (0.1-0.6); Monocytes Percent Auto 8.4 % (2.6-8.5); Neutrophils Percent Auto 68.7 % (45.5-73.1); Platelet Count Result 336 k/mm3 (150-375); Red Blood Count 4.14 M/mm3 (4.2-5.4); Red Cell Distribution Width 13.1 % (11.5-14.5); White Blood Count 7.3 K/mm3 (4.5-10.0)
[2020-04-24] MEDS: SODIUM CHLORIDE 1 GM TABLET PO ×3 (05:32→20:36)
[2020-04-24] MEDS: LEVOTHYROXINE SODIUM 50 MCG TABLET PO (05:32)
[2020-04-24 05:33] LABS: Anion Gap 2 mmol/L (8-16); Blood Urea Nitrogen 11 mg/dL (7-17); Calcium 9.8 mg/dL (8.4-10.2); Carbon Dioxide 31 mmol/L (22-30); Chloride 96 mmol/L (98-107); Estimated CRCL calculation 79 ml/min; Estimated Glomerular Filt Rate > 60; Glucose 96 mg/dL (65-105); Sodium 129 mmol/L (137-145)
[2020-04-24 06:00] VITALS: BP 127/55; PULSE 57; RESP 18; TEMP 36.2; O2SAT 97
[2020-04-24] MEDS: amLODIPine BESYLATE 5 MG TABLET PO (09:31)
[2020-04-24] MEDS: CLOPIDOGREL BISULFATE 75 MG TABLET PO (09:31)
[2020-04-24] MEDS: ASPIRIN 81 MG CHEWABLE TABLET PO (09:31)
[2020-04-24] MEDS: lisinopriL 10 MG TABLET PO ×2 (09:32→17:30)
[2020-04-24] MEDS: ENOXAPARIN 40 MG/0.4 ML SYRINGE SUB-Q (09:32)
[2020-04-24 14:00] VITALS: BP 146/67; PULSE 72; RESP 18; TEMP 36.5; O2SAT 96
[2020-04-24 20:00] VITALS: O2SAT 98
[2020-04-24] MEDS: TIZANIDINE HCL 2 MG TABLET PO (20:36)
[2020-04-24] MEDS: ATORVASTATIN 40 MG TABLET PO (20:36)
[2020-04-24] MEDS: ACETAMINOPHEN 325 MG TABLET 650 MG PO (20:36)
[2020-04-24] MEDS: MELATONIN 5 MG TABLET PO (20:36)
[2020-04-24 22:00] VITALS: BP 141/67; PULSE 79; RESP 20; TEMP 36.8; O2SAT 98
[2020-04-25 05:44] VITALS: BP 144/73; PULSE 62; RESP 20; TEMP 36.4; O2SAT 99
[2020-04-25] MEDS: LEVOTHYROXINE SODIUM 50 MCG TABLET PO (05:54)
[2020-04-25] MEDS: SODIUM CHLORIDE 1 GM TABLET PO ×3 (05:54→20:41)
[2020-04-25] MEDS: ENOXAPARIN 40 MG/0.4 ML SYRINGE SUB-Q (09:28)
[2020-04-25] MEDS: CLOPIDOGREL BISULFATE 75 MG TABLET PO (09:28)
[2020-04-25] MEDS: amLODIPine BESYLATE 5 MG TABLET PO (09:28)
[2020-04-25] MEDS: ASPIRIN 81 MG CHEWABLE TABLET PO (09:28)
[2020-04-25] MEDS: lisinopriL 10 MG TABLET PO ×2 (09:28→16:36)
--- NOTE | 2020-04-25 13:06 | WPDNEURORHBP ---
Subjective Date/time seen: 04/25/20 13:06 85 years old admitted to rehab floor with diagnosis of left hemispheric stroke in addition to comorbid conditions of 1. Hypertension 2. Hypothyroidism 3. Hyperlipidemia along with macular degeneration. she has been involved in physical therapy and occupational therapy on a regular basis. she has WBCs 7.3 with hemoglobin of 12.0, serum sodium of 129 for which she is getting salt substitute. She is ambulating with moderate assistance of 1 up to 10ft using Hemicane and able to transfer in and out of chair with moderate assistance of 1 Review of Systems Review of Systems: All systems reviewed & are unremarkable except as noted in HPI and below Functional Status Ambulation Ability Ability to Ambulate 10 Feet: Moderate Assistance X 1 Ambulation Assistive Devices: Cane, Clark Transfers Ability Ability to Transfer In/Out of Chair: Moderate Assistance X 1 Exam Narrative: Exam Narrative: on examination she is awake alert cooperative,speech not dysphasic not dysarthric not dysphonic ,neck is supple, heart regular, lungs clear, abdomen soft nontender, neuro exam unchanged Objective Data Vital Signs Vital Signs: Vital Signs - 24 hr 04/24/20 14:00 04/24/20 20:00 04/24/20 22:00 Temperature 36.5 C 36.8 C Pulse Rate 72 79 Respiratory Rate 18 20 Blood Pressure 146/67 H 141/67 H Pulse Oximetry 96 98 98 04/25/20 05:44 Temperature 36.4 C L Pulse Rate 62 Respiratory Rate 20 Blood Pressure 144/73 H Pulse Oximetry 99 Intake/Output Intake/Output: Intake & Output 04/22/20 04/23/20 04/24/20 04/25/20 23:59 23:59 23:59 23:59 Intake Total 1080 1040 1100 280 Output Total 0 Balance 1080 1040 1100 280 Meds/Results Medications: Active Medications Generic Name Dose Route Start Last Admin Trade Name Freq PRN Reason Stop Dose Admin Acetaminophen 650 mg 04/09/20 21:24 04/24/20 20:36 Acetaminophen 325 Mg Tablet PO 650 mg Q4H PRN Administration Mild Pain (1-3) or Fever Amlodipine Besylate 5 mg 04/15/20 22:40 04/25/20 09:28 Amlodipine Besylate 5 Mg Tablet PO 5 mg QAM PHAN Administration Aspirin 81 mg 04/10/20 08:00 04/25/20 09:28 Aspirin 81 Mg Chewable Tablet PO 81 mg DAILY@0800 PHAN Administration Atorvastatin Calcium 40 mg 04/09/20 21:30 04/24/20 20:36 Atorvastatin 40 Mg Tablet PO 40 mg HS PHAN Administration Clopidogrel Bisulfate 75 mg 04/10/20 09:00 04/25/20 09:28 Clopidogrel Bisulfate 75 Mg Tablet PO 75 mg DAILY PHAN Administration Enoxaparin Sodium 40 mg 04/12/20 09:00 04/25/20 09:28 Enoxaparin 40 Mg/0.4 Ml Syringe SUB-Q 40 mg DAILY PHAN Administration Levothyroxine Sodium 50 mcg 04/10/20 06:30 04/25/20 05:54 Levothyroxine Sodium 50 Mcg Tablet PO 50 mcg DAILY@0630 PHAN Administration Lisinopril 10 mg 04/10/20 09:00 04/25/20 09:28 Lisinopril 10 Mg Tablet PO 10 mg BID PHAN Administration Melatonin 5 mg 04/09/20 21:24 04/24/20 20:36 Melatonin 5 Mg Tablet PO 5 mg HS PRN Administration Sleep Ondansetron HCl 4 mg 04/10/20 11:34 Ondansetron Hcl Odt 4 Mg Tablet PO Q6H PRN Nausea And Vomiting Polyethylene Glycol 17 gm 04/23/20 09:23 Polyethylene Glycol 3350 17 Gm Powd.Pack PO QAM PRN Constipation Sodium Chloride 1 gm 04/18/20 14:00 04/25/20 05:54 Sodium Chloride 1 Gm Tablet PO 1 gm Q8HR PHAN Administration Tizanidine HCl 2 mg 04/16/20 21:00 04/24/20 20:36 Tizanidine Hcl 2 Mg Tablet PO 2 mg HS PHAN Administration Progress Note: A&P Assessment and Plan (1) Hyponatremia: Code(s): E87.1 - Hypo-osmolality and hyponatremia Status: Acute (2) Leukocytosis: Code(s): D72.829 - Elevated white blood cell count, unspecified Status: Resolved (3) Anxiety: Code(s): F41.9 - Anxiety disorder, unspecified Status: Acute (4) Hyperlipidemia: Code(s): E78.5 - Hyperlipidemia, unspecifi
[2020-04-25 14:00] VITALS: BP 124/54; PULSE 75; RESP 18; TEMP 36.8; O2SAT 96
[2020-04-25 20:00] VITALS: PULSE 77; RESP 22; O2SAT 95
[2020-04-25] MEDS: ATORVASTATIN 40 MG TABLET PO (20:41)
[2020-04-25] MEDS: MELATONIN 5 MG TABLET PO (20:41)
[2020-04-25] MEDS: ACETAMINOPHEN 325 MG TABLET 650 MG PO (20:41)
[2020-04-25] MEDS: TIZANIDINE HCL 2 MG TABLET PO (20:41)
[2020-04-25 21:41] VITALS: BP 161/70; PULSE 77; RESP 22; TEMP 36.6; O2SAT 95
[2020-04-26] MEDS: LEVOTHYROXINE SODIUM 50 MCG TABLET PO (05:29)
[2020-04-26] MEDS: SODIUM CHLORIDE 1 GM TABLET PO ×3 (05:30→20:15)
[2020-04-26 06:00] VITALS: BP 153/63; PULSE 62; RESP 20; TEMP 36.6; O2SAT 97
[2020-04-26 09:45] VITALS: PULSE 64; RESP 20; O2SAT 97
[2020-04-26] MEDS: CLOPIDOGREL BISULFATE 75 MG TABLET PO (09:55)
[2020-04-26] MEDS: ENOXAPARIN 40 MG/0.4 ML SYRINGE SUB-Q (09:55)
[2020-04-26] MEDS: amLODIPine BESYLATE 5 MG TABLET PO (09:55)
[2020-04-26] MEDS: lisinopriL 10 MG TABLET PO ×2 (09:56→16:58)
[2020-04-26] MEDS: ASPIRIN 81 MG CHEWABLE TABLET PO (09:56)
[2020-04-26 14:00] VITALS: BP 146/67; PULSE 79; RESP 20; TEMP 36.5; O2SAT 96
[2020-04-26 20:00] VITALS: PULSE 69; RESP 16; O2SAT 95
[2020-04-26] MEDS: ATORVASTATIN 40 MG TABLET PO (20:15)
[2020-04-26] MEDS: MELATONIN 5 MG TABLET PO (20:15)
[2020-04-26] MEDS: TIZANIDINE HCL 2 MG TABLET PO (20:15)
[2020-04-26] MEDS: ACETAMINOPHEN 325 MG TABLET 650 MG PO (20:15)
[2020-04-26 22:00] VITALS: BP 152/69; PULSE 69; RESP 16; TEMP 36.4; O2SAT 95
--- NOTE | 2020-04-27 01:09 | PC.NURSE ---
Daylight Savings Time For Daylight Savings Time Ending in the Fall - Clocks are moved back. For Daylight Savings Time Beginning in the Spring - Clocks are moved ahead. For [facility], the time of change occurs at 0200 hrs. Time is taken from the electrical prospecting observer. This entry on the patient's chart recognizes the change in time reflected during documentation. Example: 2 entries for vital signs may be charted for 0200 hrs.
[2020-04-27] MEDS: SODIUM CHLORIDE 1 GM TABLET PO ×3 (05:46→21:01)
[2020-04-27] MEDS: LEVOTHYROXINE SODIUM 50 MCG TABLET PO (05:46)
[2020-04-27 06:00] VITALS: BP 143/61; PULSE 62; RESP 18; TEMP 36.3; O2SAT 97
[2020-04-27] MEDS: amLODIPine BESYLATE 5 MG TABLET PO (08:58)
[2020-04-27] MEDS: ASPIRIN 81 MG CHEWABLE TABLET PO (08:58)
[2020-04-27] MEDS: lisinopriL 10 MG TABLET PO ×2 (08:58→17:11)
[2020-04-27] MEDS: ENOXAPARIN 40 MG/0.4 ML SYRINGE SUB-Q (08:58)
[2020-04-27] MEDS: CLOPIDOGREL BISULFATE 75 MG TABLET PO (08:58)
--- NOTE | 2020-04-27 11:24 | WPDNEURORHBP ---
Subjective Date/time seen: 04/27/20 11:24 85 years old admitted to the rehab floor with diagnosis of left hemispheric stroke in addition to comorbid conditions of 1. Hypertension 2. Hypothyroidism 3. Hyperlipidemia 4. Macular degeneration. She has been involved in the physical therapy and occupational therapy on a regular basis she is ambulating up to 10ft with moderate assistance of 1 using the [place] cane and able to transfer in and out of chair with moderate assistance of 1 remains afebrile Review of Systems Review of Systems: All systems reviewed & are unremarkable except as noted in HPI and below Functional Status Ambulation Ability Ability to Ambulate 10 Feet: Moderate Assistance X 1 Ambulation Assistive Devices: Cane, Clark Transfers Ability Ability to Transfer In/Out of Chair: Moderate Assistance X 1 Exam Narrative: Exam Narrative: on examination today she is awake alert, cooperative, speech nor dysphasic, not dysarthric, not dysphasic, heart regular, no murmur, lungs clear to auscultation with no rhonchi or crepitations, abdomen is soft nontender with normal bowel sounds, and neurological examination unchanged Objective Data Vital Signs Vital Signs: Vital Signs - 24 hr 04/26/20 14:00 04/26/20 20:00 04/26/20 22:00 Temperature 36.5 C 36.4 C Pulse Rate 79 69 69 Respiratory Rate 20 16 16 Blood Pressure 146/67 H 152/69 H Pulse Oximetry 96 95 95 04/27/20 06:00 Temperature 36.3 C L Pulse Rate 62 Respiratory Rate 18 Blood Pressure 143/61 H Pulse Oximetry 97 Intake/Output Intake/Output: Intake & Output 04/24/20 04/25/20 04/26/20 04/27/20 23:59 23:59 23:59 22:59 Intake Total 1033 874 0075 390 Output Total 0 Balance 7058 521 7169 390 Meds/Results Medications: Active Medications Generic Name Dose Route Start Last Admin Trade Name Freq PRN Reason Stop Dose Admin Acetaminophen 650 mg 04/09/20 21:24 04/26/20 20:15 Acetaminophen 325 Mg Tablet PO 650 mg Q4H PRN Administration Mild Pain (1-3) or Fever Amlodipine Besylate 5 mg 04/15/20 22:40 04/27/20 08:58 Amlodipine Besylate 5 Mg Tablet PO 5 mg QAM PHAN Administration Aspirin 81 mg 04/10/20 08:00 04/27/20 08:58 Aspirin 81 Mg Chewable Tablet PO 81 mg DAILY@0800 PHAN Administration Atorvastatin Calcium 40 mg 04/09/20 21:30 04/26/20 20:15 Atorvastatin 40 Mg Tablet PO 40 mg HS PHAN Administration Clopidogrel Bisulfate 75 mg 04/10/20 09:00 04/27/20 08:58 Clopidogrel Bisulfate 75 Mg Tablet PO 75 mg DAILY PHAN Administration Enoxaparin Sodium 40 mg 04/12/20 09:00 04/27/20 08:58 Enoxaparin 40 Mg/0.4 Ml Syringe SUB-Q 40 mg DAILY PHAN Administration Levothyroxine Sodium 50 mcg 04/10/20 06:30 04/27/20 05:46 Levothyroxine Sodium 50 Mcg Tablet PO 50 mcg DAILY@0630 PHAN Administration Lisinopril 10 mg 04/10/20 09:00 04/27/20 08:58 Lisinopril 10 Mg Tablet PO 10 mg BID PHAN Administration Melatonin 5 mg 04/09/20 21:24 04/26/20 20:15 Melatonin 5 Mg Tablet PO 5 mg HS PRN Administration Sleep Ondansetron HCl 4 mg 04/10/20 11:34 Ondansetron Hcl Odt 4 Mg Tablet PO Q6H PRN Nausea And Vomiting Polyethylene Glycol 17 gm 04/23/20 09:23 Polyethylene Glycol 3350 17 Gm Powd.Pack PO QAM PRN Constipation Sodium Chloride 1 gm 04/18/20 14:00 04/27/20 05:46 Sodium Chloride 1 Gm Tablet PO 1 gm Q8HR PHAN Administration Tizanidine HCl 2 mg 04/16/20 21:00 04/26/20 20:15 Tizanidine Hcl 2 Mg Tablet PO 2 mg HS PHAN Administration Progress Note: A&P Assessment and Plan (1) Hyponatremia: Code(s): E87.1 - Hypo-osmolality and hyponatremia Status: Acute (2) Leukocytosis: Code(s): D72.829 - Elevated white blood cell count, unspecified Status: Resolved (3) Anxiety: Code(s): F41.9 - Anxiety disorder, unspecified Status: Acute (4) Hyperlipidemia: Code(s): E78.5 - Hyperlip
[2020-04-27 14:00] VITALS: BP 128/60; PULSE 67; RESP 20; TEMP 36.8; O2SAT 95
[2020-04-27] MEDS: TIZANIDINE HCL 2 MG TABLET PO (20:08)
[2020-04-27] MEDS: ATORVASTATIN 40 MG TABLET PO (20:08)
[2020-04-27] MEDS: MELATONIN 5 MG TABLET PO (20:16)
[2020-04-27] MEDS: ACETAMINOPHEN 325 MG TABLET 650 MG PO (20:16)
[2020-04-27 22:00] VITALS: BP 147/66; PULSE 68; RESP 17; TEMP 36.1; O2SAT 97
[2020-04-28] MEDS: LEVOTHYROXINE SODIUM 50 MCG TABLET PO (05:35)
[2020-04-28] MEDS: SODIUM CHLORIDE 1 GM TABLET PO ×3 (05:35→21:09)
[2020-04-28 06:00] VITALS: BP 148/68; PULSE 65; RESP 18; TEMP 36; O2SAT 99
[2020-04-28] MEDS: amLODIPine BESYLATE 5 MG TABLET PO (08:41)
[2020-04-28] MEDS: CLOPIDOGREL BISULFATE 75 MG TABLET PO (08:41)
[2020-04-28] MEDS: lisinopriL 10 MG TABLET PO ×2 (08:41→16:44)
[2020-04-28] MEDS: ENOXAPARIN 40 MG/0.4 ML SYRINGE SUB-Q (08:41)
[2020-04-28] MEDS: ASPIRIN 81 MG CHEWABLE TABLET PO (08:41)
--- NOTE | 2020-04-28 09:53 | PC.NURSE ---
Observed patient having stool material oozing out from vaginal area, informed Dr. Castro, ordered [employer] OFFIC[employer] consult, Dr. Valverde notified. Patient aware of what was observed and that will be in to see her
[2020-04-28 14:00] VITALS: BP 128/58; PULSE 54; RESP 16; TEMP 36.6; O2SAT 96
[2020-04-28] MEDS: TIZANIDINE HCL 2 MG TABLET PO (20:43)
[2020-04-28] MEDS: ATORVASTATIN 40 MG TABLET PO (20:43)
[2020-04-28] MEDS: ACETAMINOPHEN 325 MG TABLET 650 MG PO (20:43)
[2020-04-28] MEDS: MELATONIN 5 MG TABLET PO (20:44)
[2020-04-28 20:45] VITALS: PULSE 74; RESP 18; O2SAT 96
[2020-04-28 21:00] VITALS: BP 129/50; PULSE 74; RESP 18; TEMP 36.7; O2SAT 96
[2020-04-29 05:40] VITALS: BP 123/39; PULSE 67; RESP 18; TEMP 36.4; O2SAT 97
[2020-04-29] MEDS: LEVOTHYROXINE SODIUM 50 MCG TABLET PO (06:29)
[2020-04-29] MEDS: SODIUM CHLORIDE 1 GM TABLET PO ×3 (06:29→21:22)
[2020-04-29] MEDS: lisinopriL 10 MG TABLET PO ×2 (10:35→17:12)
[2020-04-29] MEDS: ASPIRIN 81 MG CHEWABLE TABLET PO (10:35)
[2020-04-29] MEDS: ENOXAPARIN 40 MG/0.4 ML SYRINGE SUB-Q (10:35)
[2020-04-29] MEDS: CLOPIDOGREL BISULFATE 75 MG TABLET PO (10:35)
[2020-04-29] MEDS: amLODIPine BESYLATE 5 MG TABLET PO (10:35)
--- NOTE | 2020-04-29 12:00 | WPDNEUROPN ---
Progress Note: A&P Assessment and Plan (1) Hyponatremia: Code(s): E87.1 - Hypo-osmolality and hyponatremia Status: Acute (2) Leukocytosis: Code(s): D72.829 - Elevated white blood cell count, unspecified Status: Resolved (3) Hyperlipidemia: Code(s): E78.5 - Hyperlipidemia, unspecified Status: Acute (4) Anxiety: Code(s): F41.9 - Anxiety disorder, unspecified Status: Acute (5) GERD (gastroesophageal reflux disease): Code(s): K21.9 - Gastro-esophageal reflux disease without esophagitis Status: Acute (6) Hypertension: Code(s): I10 - Essential (primary) hypertension Status: Acute (7) Left hemiplegia: Code(s): G81.94 - Hemiplegia, unspecified affecting left nondominant side Status: Acute (8) Stroke: Code(s): I63.9 - Cerebral infarction, unspecified Status: Acute Additional Plan stable continue the treatment as such Review of Systems Review of Systems: All systems reviewed & are unremarkable except as noted in HPI and below Exam Narrative: Exam Narrative: on examination she remains awake alert cooperative speech is not dysphasic no dysarthric nor dysphonic neck is supple with no restriction of the range of the motion heart regular with no murmur lungs clear to auscultation no rhonchi or crepitation abdomen is soft nontender normal bowel sounds neuro examination unchanged Objective Data Vital Signs Vital Signs: Vital Signs - 24 hr 04/28/20 14:00 04/28/20 20:45 04/28/20 21:00 Temperature 36.6 C 36.7 C Pulse Rate 54 L 74 74 Respiratory Rate 16 18 18 Blood Pressure 128/58 L 129/50 L Pulse Oximetry 96 96 96 04/29/20 05:40 Temperature 36.4 C Pulse Rate 67 Respiratory Rate 18 Blood Pressure 123/39 L Pulse Oximetry 97 Intake/Output Intake/Output: Intake & Output 04/27/20 04/27/20 04/28/20 04/29/20 00:59 23:59 23:59 23:59 Intake Total 1060 360 Output Total Balance 1060 360 Meds/Results Medications: Active Medications Generic Name Dose Route Start Last Admin Trade Name Freq PRN Reason Stop Dose Admin Acetaminophen 650 mg 04/09/20 21:24 04/28/20 20:43 Acetaminophen 325 Mg Tablet PO 650 mg Q4H PRN Administration Mild Pain (1-3) or Fever Amlodipine Besylate 5 mg 04/15/20 22:40 04/29/20 10:35 Amlodipine Besylate 5 Mg Tablet PO 5 mg QAM PHAN Administration Aspirin 81 mg 04/10/20 08:00 04/29/20 10:35 Aspirin 81 Mg Chewable Tablet PO 81 mg DAILY@0800 PHAN Administration Atorvastatin Calcium 40 mg 04/09/20 21:30 04/28/20 20:43 Atorvastatin 40 Mg Tablet PO 40 mg HS PHAN Administration Clopidogrel Bisulfate 75 mg 04/10/20 09:00 04/29/20 10:35 Clopidogrel Bisulfate 75 Mg Tablet PO 75 mg DAILY PHAN Administration Enoxaparin Sodium 40 mg 04/12/20 09:00 04/29/20 10:35 Enoxaparin 40 Mg/0.4 Ml Syringe SUB-Q 40 mg DAILY PHAN Administration Levothyroxine Sodium 50 mcg 04/10/20 06:30 04/29/20 06:29 Levothyroxine Sodium 50 Mcg Tablet PO 50 mcg DAILY@0630 PHAN Administration Lisinopril 10 mg 04/10/20 09:00 04/29/20 10:35 Lisinopril 10 Mg Tablet PO 10 mg BID PHAN Administration Melatonin 5 mg 04/09/20 21:24 04/28/20 20:44 Melatonin 5 Mg Tablet PO 5 mg HS PRN Administration Sleep Ondansetron HCl 4 mg 04/10/20 11:34 Ondansetron Hcl Odt 4 Mg Tablet PO Q6H PRN Nausea And Vomiting Polyethylene Glycol 17 gm 04/23/20 09:23 Polyethylene Glycol 3350 17 Gm Powd.Pack PO QAM PRN Constipation Sodium Chloride 1 gm 04/18/20 14:00 04/29/20 06:29 Sodium Chloride 1 Gm Tablet PO 1 gm Q8HR PHAN Administration Tizanidine HCl 2 mg 04/16/20 21:00 04/28/20 20:43 Tizanidine Hcl 2 Mg Tablet PO 2 mg HS PHAN Administration
[2020-04-29 14:00] VITALS: BP 123/66; PULSE 73; RESP 18; TEMP 36.6; O2SAT 98
--- NOTE | 2020-04-29 14:22 | PCDIET ---
Nutrition Follow-Up Complete: Nutrition Diagnosis: Predicted inadequate energy intake related to recovery from stroke, as evidenced by inconsistent appetite and intake record. Nutrition Goal: Pt. will regain consistent appetite and consume at least 90% of caloric needs to promote recovery. Goal in progress. Average intake since last review was 83% of meals. Patient on regular diet with 1.5L fluid restriction which is appropriate. Last recorded weight is 58.6 kg. Recommend obtaining new weight. Bowel Motility: BM x 1 on 04/28/20. Labs Reviewed: BUN (9), Cr (0.5), Na (128) Meds Noted: Norvasc, Lipitor, Synthroid, Lisinopril, Sodium Chloride tabs Additional Notes: No documented skin breakdown. Will continue to monitor with same goal. Nutrition Monitoring and Evaluation: Follow up in 7 days.
--- NOTE | 2020-04-29 17:55 | WPDCN ---
Assessment and Plan Assessment and plan (1) Foul smelling vaginal discharge: Code(s): N89.8 - Other specified noninflammatory disorders of vagina Status: Acute Assessment and Plan: this patient is an 85-year-old female with a recent cerebral infarction with foul-smelling vaginal discharge that appears to have stool in it. We will perform pelvic exam under anesthesia. She understands the risks, benefits, and alternatives. She has completed the informed consent process is ready to proceed. HPI Data of Consult Date/Time: 04/29/20 17:55 Requesting Physician: Layton Condon MD Primary Care Provider: Betty Gaytan, MACHINE [employer]CH[employer]IC Consult Narrative Narrative: Lori Rodriguez is a 85 year old female With the recent cerebral infarction that resulted in left-sided paralysis. During the patient's care in rehab stool was noted to be coming from the vagina. Patient reports abnormal vaginal discharge. She denies any vaginal pain. She denies any vulvar irritation. She denies any vaginal bleeding. Review of Systems Constitutional: Constitutional: Reports no additional constitutional complaints, Denies fatigue, Denies headache(s), Denies lethargy and Denies weakness Eyes: Eyes: Reports no additional eye complaints, Denies blurry vision and Denies photophobia ENT: Reports as per HPI, Denies headache(s) and Denies neck pain Cardiovascular: Cardiovascular: Denies chest pain, Denies diaphoresis, Denies leg edema, Denies palpitations and Denies dyspnea Respiratory: Respiratory: Denies hemoptysis, Denies dyspnea and Denies wheezing Gastrointestinal: Gastrointestinal: Denies abdominal pain, Denies melena, Denies bloating, Denies hematochezia, Denies nausea and Denies vomiting Genitourinary: Genitourinary: Reports no additional female genitourinary complaints Musculoskeletal: Musculoskeletal: Denies joint swelling, Denies neck pain, Denies numbness and Denies stiffness Neurologic: Denies Abnormal speech present, Denies confusion, Denies headache(s), Denies numbness and Denies weakness Psychiatric: Psychiatric: Denies anxiety, Denies confusion, Denies depression, Denies homicidal ideation and Denies suicidal ideation Endocrine: Endocrine: Denies fatigue and Denies palpitations Allergic/Immunologic: Allergic/Immunologic: Denies wheezing PMFSH Past Medical History Medical History (Updated 04/29/20 @ 17:58 by Negrito Valverde MD) Anxiety GERD (gastroesophageal reflux disease) History of bronchitis History of macular degeneration History of pneumonia History of UTI Hyperlipidemia Hypertension Family History Family History Other Hypertension Heart disease Social History Social History Smoking status: Never smoker Alcohol intake: never Substance use: never Substance use type: does not use Gender identity (if verbalized by the patient): Female Spiritual care concerns: No Meds Home Medications and Allergies Home Medications Medication Instructions Recorded Confirmed Type acetaminophen 650 mg PO PRN PRN 04/09/20 04/09/20 History aspirin 81 mg PO DAILY 04/09/20 04/09/20 History atorvastatin 40 mg PO HS 04/09/20 04/09/20 History clopidogrel [Plavix] 75 mg PO DAILY 04/09/20 04/09/20 History levothyroxine 50 mcg PO DAILY 04/09/20 04/09/20 History lisinopril 10 mg PO BID 04/09/20 04/09/20 History melatonin 5 mg PO HS PRN 04/09/20 04/09/20 History Allergies Allergy/AdvReac Type Severity Reaction Status Date / Time No Known Allergies Allergy Verified 04/18/20 18:18 Vital Signs Vital Signs - 24 hr 04/28/20 20:45 04/28/20 21:00 04/29/20 05:40 Temperature 98.1 F 97.6 F Pulse Rate 74 74 67 Respiratory Rate 18 18 18 Blood Pressure 129/50 L 123/39 L Pulse Oximetry 96 96 97 04/29/20 14:00 Temperature 97.8 F Pulse Rate 73 Respiratory Rate 18 Blood Pressure 123/66 Pulse Oximetr
[2020-04-29 20:00] VITALS: PULSE 75; RESP 16; O2SAT 97
[2020-04-29 20:50] LABS: SARS-CoV-2 RNA PCR Negative
[2020-04-29] MEDS: TIZANIDINE HCL 2 MG TABLET PO (21:21)
[2020-04-29] MEDS: ATORVASTATIN 40 MG TABLET PO (21:21)
[2020-04-29] MEDS: MELATONIN 5 MG TABLET PO (21:22)
[2020-04-29] MEDS: ACETAMINOPHEN 325 MG TABLET 650 MG PO (21:22)
[2020-04-29 22:00] VITALS: BP 148/58; PULSE 75; RESP 16; TEMP 37.3; O2SAT 97
[2020-04-30 06:00] VITALS: BP 144/73; PULSE 72; RESP 16; TEMP 36.6; O2SAT 96
[2020-04-30] MEDS: LEVOTHYROXINE SODIUM 50 MCG TABLET PO (06:02)
[2020-04-30] MEDS: amLODIPine BESYLATE 5 MG TABLET PO (06:02)
--- NOTE | 2020-04-30 06:34 | PC.NURSE ---
0634 transferred to OR preop for vaginal exam under anesthesia per stephanyer..
--- NOTE | 2020-04-30 07:14 | HP_ITS ---
This report was moved to the correct visit, [id number] on 05/16/2020. Original report was signed by Negrito Valverde MD on 04/30/20713. History and Physical Update Update Date/Time: 04/30/20 07:14 History and Physical has been reviewed, including an updated exam of the patient. There are NO changes in the patient's condition. Risks, benefits, and alternatives have been discussed and questions answered. Patient agrees to proceed with procedure. Report Initialized date/time: Negrito Valverde MD 04/30/20713 Electronically signed by: Negrito Valverde MD 04/30/20713 [facility]
--- NOTE | 2020-04-30 07:57 | OP_ITS ---
This report was moved to the correct visit, [id number] on 05/16/2020. Original report was signed by Negrito Valverde MD on 04/30/20756. Procedure Note - Detailed Date of procedure: 04/30/20 Pre-op diagnosis: VAGINAL EXAM UNDER ANESTHESIA Abnormal vaginal discharge Post-op diagnosis: same Procedure performed: pelvic exam under anesthesia Description of procedure: the patient was taken the operating room. She was prepped and draped in the dorsal lithotomy position. She received mac anesthesia. A pelvic exam was performed. A rectal exam was performed. There were no defects found between the vagina and the rectum. The vagina appeared normal. There was no stool within the vagina rectal exam was performed no defects were appreciated on the anterior rectal surface. The procedure was terminated. The patient tolerated the procedure well. She is taking cover stable condition. Anesthesia: MAC Surgeon: Negrito Valverde MD Estimated blood loss (mL): 0 Drains: No Packing: No Pathology: none sent Complications: No immediate complications Condition: stable Disposition: PACU Findings: Normal vulva, vagina, cervix. Normal rectal exam. No defect was observed between the vagina and the rectum. No stool was observed in the rectum. Report Initialized date/time: Negrito Valverde MD 04/30/20756 Electronically signed by: Negrito Valverde MD 04/30/20756 [facility]
[2020-04-30] MEDS: ENOXAPARIN 40 MG/0.4 ML SYRINGE SUB-Q (08:59)
[2020-04-30] MEDS: CLOPIDOGREL BISULFATE 75 MG TABLET PO (08:59)
[2020-04-30] MEDS: ASPIRIN 81 MG CHEWABLE TABLET PO (08:59)
[2020-04-30] MEDS: lisinopriL 10 MG TABLET PO (08:59)
--- NOTE | 2020-04-30 12:08 | WPDNEURORHBP ---
Subjective Date/time seen: 04/30/20 12:08 patient underwent vaginal examination under anesthesia on April 30, 2020 as per the notes there was no obvious defects in the vaginal and rectum patient tolerated the procedure well the procedure was done because of the observation of fecal material coming out of the vagina she continues to be involved in the physical therapy and occupational therapy with all the comorbid conditions as mentioned before Review of Systems Review of Systems: All systems reviewed & are unremarkable except as noted in HPI and below Functional Status Ambulation Ability Ability to Ambulate 10 Feet: Moderate Assistance X 1 Ability to Ambulate 50 Feet With 2 Turns: Moderate Assistance X 1 Ambulation Assistive Devices: Cane, Clark Transfers Ability Ability to Transfer In/Out of Chair: Moderate Assistance X 1 Exam Narrative: Exam Narrative: on examination she is awake alert cooperative in no obvious discomfort has no specific complaint neck supple heart regular lungs clear abdomen is soft nontender and neuro examination unchanged Objective Data Vital Signs Vital Signs: Vital Signs - 24 hr 04/29/20 14:00 04/29/20 20:00 04/29/20 22:00 Temperature 36.6 C 37.3 C Pulse Rate 73 75 75 Respiratory Rate 18 16 16 Blood Pressure 123/66 148/58 H Pulse Oximetry 98 97 97 04/30/20 06:00 Temperature 36.6 C Pulse Rate 72 Respiratory Rate 16 Blood Pressure 144/73 H Pulse Oximetry 96 Intake/Output Intake/Output: Intake & Output 04/27/20 04/28/20 04/29/20 04/30/20 23:59 23:59 23:59 23:59 Intake Total 1060 400 240 Output Total Balance 1060 400 240 Meds/Results Medications: Active Medications Generic Name Dose Route Start Last Admin Trade Name Freq PRN Reason Stop Dose Admin Acetaminophen 650 mg 04/09/20 21:24 04/29/20 21:22 Acetaminophen 325 Mg Tablet PO 650 mg Q4H PRN Administration Mild Pain (1-3) or Fever Amlodipine Besylate 5 mg 04/15/20 22:40 04/30/20 06:02 Amlodipine Besylate 5 Mg Tablet PO 5 mg QAM PHAN Administration Aspirin 81 mg 04/10/20 08:00 04/30/20 08:59 Aspirin 81 Mg Chewable Tablet PO 81 mg DAILY@0800 [facility] Administration Atorvastatin Calcium 40 mg 04/09/20 21:30 04/29/20 21:21 Atorvastatin 40 Mg Tablet PO 40 mg HS PHAN Administration Clopidogrel Bisulfate 75 mg 04/10/20 09:00 04/30/20 08:59 Clopidogrel Bisulfate 75 Mg Tablet PO 75 mg DAILY PHAN Administration Enoxaparin Sodium 40 mg 04/12/20 09:00 04/30/20 08:59 Enoxaparin 40 Mg/0.4 Ml Syringe SUB-Q 40 mg DAILY PHAN Administration Levothyroxine Sodium 50 mcg 04/10/20 06:30 04/30/20 06:02 Levothyroxine Sodium 50 Mcg Tablet PO 50 mcg DAILY@0630 PHAN Administration Lisinopril 10 mg 04/10/20 09:00 04/30/20 08:59 Lisinopril 10 Mg Tablet PO 10 mg BID PHAN Administration Melatonin 5 mg 04/09/20 21:24 04/29/20 21:22 Melatonin 5 Mg Tablet PO 5 mg HS PRN Administration Sleep Ondansetron HCl 4 mg 04/10/20 11:34 Ondansetron Hcl Odt 4 Mg Tablet PO Q6H PRN Nausea And Vomiting Polyethylene Glycol 17 gm 04/23/20 09:23 Polyethylene Glycol 3350 17 Gm Powd.Pack PO QAM PRN Constipation Sodium Chloride 1 gm 04/18/20 14:00 04/30/20 08:58 Sodium Chloride 1 Gm Tablet PO Not Given Q8HR PHAN Tizanidine HCl 2 mg 04/16/20 21:00 04/29/20 21:21 Tizanidine Hcl 2 Mg Tablet PO 2 mg HS PHAN Administration Labs Labs: Laboratory Results - last 24 hr 04/29/20 04:52 SARS-CoV-2 RNA (RT-PCR) Negative Progress Note: A&P Assessment and Plan (1) Left hemiplegia: Code(s): G81.94 - Hemiplegia, unspecified affecting left nondominant side Status: Acute (2) Stroke: Code(s): I63.9 - Cerebral infarction, unspecified Status: Acute (3) Foul smelling vaginal discharge: Code(s): N89.8 - Other specified noninflammatory disorders of vagina Status: Acu
[2020-04-30 14:00] VITALS: BP 129/62; PULSE 70; RESP 20; TEMP 36.9; O2SAT 97
[2020-04-30] MEDS: SODIUM CHLORIDE 1 GM TABLET PO (14:00)
--- NOTE | 2020-05-02 11:01 | PM.DS ---
DS: Admitting Diagnosis Admitting Diagnosis Admitting Diagnosis: ADMISSION FUNCTION: Eating [Set Up Only] Oral Care [] substantially Toileting Hygiene [] dependent Shower/Bathing [] substantia Upper Body Dressing [] partial assistance Lower Body Dressing [] dependent Donning/Numidia Footwear [] substantial Sit to Lying [] partial pharmacist assistant Lying to Sitting [] partial pharmacist assistant Sit to Stand [] dependent Bed to Chair Transfers [] dependent Toilet Transfers [] dependent Car Transfers [] unable Walking 10' [] unable Walking 50' with Two Turns [] unable Walking 150' [] unable Curb or Step [] unable 4 steps unable 12 Steps [] unable Picking Up object unable [Wheelchair Mobility 50'] [] partial assistance [Wheelchair Mobility 150'] [] partial assistance GOALS: Eating [INDEPENDENT] Oral Care [INDEPENDENT] Toileting Hygiene [INDEPENDENT] Shower/Bathing supervision Upper Body Dressing supervision Lower Body Dressing partial assistance Donning/Numidia Footwear partial assistance] Rolling Left and Right [INDEPENDENT] Sit to Lying [INDEPENDENT] Lying to Sitting [INDEPENDENT] Sit to Stand supervision Bed to Chair Transfers partial assistance] Toilet Transfers partial assistance Car Transfers supervision Walking 10' supervision Walking 50' with Two Turns supervision Walking 150' not applicable Curb or Step partial pharmacist assistant 4 Steps partial pharmacist assistant 12 Steps not applicable Picking Up Object supervision [Wheelchair Mobility 50'] super B [Wheelchair Mobility 150'] super DISCHARGE PERFORMANCE: Eating set up Oral Care supervision Toileting Hygiene substantiated Upper Body Dressing partial assistance Lower Body Dressing substantial footwear partial assistance Rolling Left and Right supervision Lying to Sitting supervision] Sit to Stand partial assistance Bed to Chair Transfers partial assistance Toilet Transfers partial assistance Car Transfers partial assistance Walking 10' substantial walking 50ft with with 2 turns dependent Walking 150' unable Curb or Step unable 4 Steps unable 12 Steps unable Picking Up Object dependent [Wheelchair Mobility 50'] independent [Wheelchair Mobility 150'] independent The patient had [no falls]. DS: Summary Time Spent with Patient Time attestation: Total time spent providing and/or coordinating discharge services: Exam Narrative: Exam Narrative: on examination at the time of discharge he was no obvious defect as per the report from the examination by the biological scientist in the vaginal rectum wall patient was awake alert cooperative in no obvious acute distress speech was no dysphasic no dysarthric neck was supple heart was regular lungs clear abdomen is soft neuro unchanged he was able to ambulate up to 50ft with 2 turns with moderate assistance of 1 and ambulate with the OR cane able to transfer in and out of chair with moderate assistance of 1 general physical examination remained stable and her condition was definitely stable and significantly improved Discharge Plan Discharge Attending physician on discharge: Layton Condon Consulting providers: Negrito Valverde Discharging Clinician: Christos Castro Patient Disposition: SNF Activity: may shower, no driving and as tolerated Diet: as tolerated, regular and other - see discharge instructions Discharge Instructions: 1500 mL fluid restriction. Patient Instructions: Pain Management (GEN), Safe Use of Anticoagulants (GEN), Stroke (GEN) Stand Alone Forms: General Discharge Information Follow-up/Referrals: Karol,Ishaan Swain MD [Non-Staff] - Call for Appointment ([facility] [phone] [facility] [id number] - [phone] follow up in one month-will need appointment) Discharge Medications: Continued atorvastatin 40 mg Tablet 40 mg PO HS RF: 0 clopidogrel [Plavix] 75 mg Tablet 75 mg PO DAILY RF: 0 levothyroxine 50 mcg Tablet 50 mcg PO DAILY RF: 0 lisinopril
== END 2020-04-30 15:54 | DRG 57 ==
PROVIDERS: Admitting Provider Psychiatry & Neurology Neurology; PCP Family Medicine; Visit Provider Psychiatry & Neurology Neurology
DX: I69.354 Hemiplegia and hemiparesis following cerebral infarction affecting left non-dominant side (principal); E87.1 Hypo-osmolality and hyponatremia; N89.8 Other specified noninflammatory disorders of vagina; Z20.828 Contact with and (suspected) exposure to other viral communicable diseases; I69.311 Memory deficit following cerebral infarction; R41.3 Other amnesia; I69.398 Other sequelae of cerebral infarction; H53.40 Unspecified visual field defects; E78.5 Hyperlipidemia, unspecified; F41.9 Anxiety disorder, unspecified; E03.9 Hypothyroidism, unspecified; H35.30 Unspecified macular degeneration; H91.90 Unspecified hearing loss, unspecified ear; I10 Essential (primary) hypertension; K21.9 Gastro-esophageal reflux disease without esophagitis
CPT/HCPCS: 36415; 80048; 80061; 85025; 87635; 92507; 92523; 97110; 97112; 97116; 97129; 97130; 97162; 97166; 97530; 97535; 97542; A9270; C9803; J1650; J2704; J7120; U0003